=== PATIENT | male | born 1935 | race African-American/Black ===

== ENCOUNTER 2017-11-17 06:01 | Day surgery (SDC) | payer MEDICARE, OTHER ==
--- NOTE | 2017-11-13 16:42 | Pre-Procedure Note/Attestation ---
Pre-Procedure Note/Attestation Complete Prior to Procedure Planned Procedure: left Procedure Narrative: 1. CATARACT EXTRACTION WITH PHACO AND PC IOL IMPLANTATION, LEFT EYE. 2. LIMBAL RELAXING INCISION, LEFT EYE. 3.MALYUGIN RING INSERTION, LEFT EYE FOR FLOPPY IRIS SYNDROME. 4.COMPLEX CATARACT , LEFT EYE Indications for Procedure Pre-Operative Diagnosis: 1. CATARACT (AGE RELATED NUCLEAR) ,LEFT EYE. 2.ASTIGMATISM , LEFT EYE. 3. FLOPPY IRIS SYNDROME,LEFT EYE 4. COMPLEX CATARACT , LEFT EYE. Attestation I attest that I discussed the nature of the procedure; its benefits; risks and complications; and alternatives (and the risks and benefits of such alternatives ), prior to the procedure, with the patient (or the patient's legal international representative). I attest that, if there was a reasonable possibility of needing a blood transfusion, the patient (or the patient's legal international representative) was given the [facility] standardized written summary, pursuant to the [place] Blood Safety Act ([place] Health and Safety Code # 1645, as amended). I attest that I re-evaluated the patient just prior to the surgery and that there has been no change in the patient's H&P, except as documented below: ABE MARI Nov 13, 2017 16:41
[2017-11-17] VITALS (9 sets, daily range): BP systolic 111–148; BP diastolic 69–98
[~2017-11-17] VITALS: Ht 180.3 cm; Wt 115.7 kg
[~2017-11-17 06:01] MED LIST: AMLODIPINE BES2.5 MG ORAL; ASPIR 8181 MG PO; ATORVASTATIN CA80 MG ORAL; Akten 3.5% 1ml Btl ONE; BACTRIM DS TAB1 EAC1 ORAL; CIPRO500 MG/51 PO; COLACE; COLACE100 MG ORAL; COZAAR50 MG PO; CRESTOR20 MG ORAL; GABAPENTIN300 MG PO; GLIPIZIDE10 MG PO; INSULIN; JANUMET 50-1,01 EACH PO; KEFLEX500 MG ORAL; Ketorolac Tromethamine Opth 5ml Soln ONE; LEVEMIR FL100 UNIT/1 SUBQ; NORCO 5-325 TA1 EACH ORAL; Phenylephrine 10% Opth Soln 5ml ONE; STARLIX120 MG ORAL; STARLIX60 MG ORAL; Tropicamide 1% Opth 15ml Soln ONE; Vigamox Opth Soln 3ml ONE; acetaZOLAMIDE 125mg tab ORAL ONE
[2017-11-17] MEDS: Ketorolac Tromethamine Opth 5ml Soln LEFT EYE SCH ×3 (06:42→07:01)
[2017-11-17] MEDS: Akten 3.5% 1ml Btl LEFT EYE SCH ×3 (06:42→07:01)
[2017-11-17] MEDS: Phenylephrine 10% Opth Soln 5ml LEFT EYE SCH ×3 (06:43→07:01)
[2017-11-17] MEDS: Vigamox Opth Soln 3ml LEFT EYE SCH ×3 (06:43→07:01)
[2017-11-17] MEDS: Tropicamide 1% Opth 15ml Soln LEFT EYE SCH ×3 (06:43→07:01)
[2017-11-17] MEDS ORDERED: Lidocaine 1% MPF 10mg/ml 5ml ONE ×2 (07:02→07:30)
[2017-11-17] MEDS ORDERED: BSS 500ml btl ONE (07:02)
[2017-11-17] MEDS ORDERED: Dexamethasone 4mg/ml vial ONE (07:02)
[2017-11-17] MEDS ORDERED: Tetracaine 0.5% Opth 4ml Soln ONE (07:02)
[2017-11-17] MEDS ORDERED: BSS 15ml BTL ONE (07:03)
[2017-11-17] MEDS ORDERED: EPINEPHrine 1mg/1ml Amp ONE (07:03)
[2017-11-17] MEDS ORDERED: Carbachol 0.01% Op Soln 1.5ml vial ONE (07:03)
[2017-11-17] MEDS ORDERED: Sodium Hyaluronate 10 mg/ml 0.85ml ONE (07:04)
[2017-11-17] MEDS ORDERED: Povidone-Iodine 5% opth solution ONE (07:04)
[2017-11-17] MEDS ORDERED: TOUJEO SOL300 UNIT/1 SQ (07:07)
[2017-11-17] MEDS ORDERED: DiphenhydrAMINE 50mg/ml Inj ONE (07:18)
[2017-11-17] MEDS ORDERED: TAMSULOSIN HCL0.4 MG ORAL (07:19)
[2017-11-17] MEDS ORDERED: LR 1000ml 1,000 ML IVLG SCH (07:23)
--- NOTE | 2017-11-17 07:23 | Anethesia Preoperative Eval ---
Anesthesia Pre-op PMH/ROS General Date of Evaluation: Nov 17, 2017 Anesthesiologist: Leo ASA Score: ASA 3 Mallampati Score Class I : Soft palate, uvula, fauces, pillars visible Class II: Soft palate, uvula, fauces visible Class III: Soft palate, base of uvula visible Class IV: Only hard plate visible Mallampati Classification: Class III Surgeon: Ezra Diagnosis: Left ctaract Surgical Procedure: Left ctaract extraction with IOL Anesthesia History: none Family History: no anesthesia problems Allergies: Coded Allergies: No Known Allergies (Unverified , 01/04/13) Medications: see eMAR Past Medical History Cardiovascular: Reports: HTN, CAD, other - HLD, Denies: [place], valve dz, arrhythmia Pulmonary: Reports: asthma, Denies: COPD, CRUZ, other Gastrointestinal/Genitourinary: Reports: GERD, other - pancreatitis, Denies: CRI, ESRD Neurologic/Psychiatric: Reports: 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 Exam Physician Exam Last Vital Signs Date Time Temp Pulse Resp B/P (MAP) Pulse Ox O2 Delivery O2 Flow Rate FiO2 11/17/17 06:50 97.3 77 20 111/73 96 Room Air Constitutional: NAD Cardiovascular: RRR Respiratory: CTA Airway Exam Mallampati Score: Class III MO: limited ROM: limited Teeth: missing Dentures: upper, lower Anesthesia Pre-op A/P Labs see chart Studies Pre-op Studies: EKG Risk Assessment & Plan Assessment: ASA III Plan: MAC Pre-Antibiotics Drug: N/A CHAN BARBOUR M.D. Nov 17, 2017 07:23
--- NOTE | 2017-11-17 07:24 | Immediate Post-Op Evaluation ---
Immediate Post-Op Evalulation Immediate Post-Op Evalulation Procedure: Left cataract extraction with IOL Date of Evaluation: Nov 17, 2017 Time of Evaluation: 08:28 IV Fluids: 300 Blood Products: 0 Estimated Blood Loss: 0 Urinary Output: 0 Blood Pressure Systolic: 146 Blood Pressure Diastolic: 98 Pulse Rate: 77 Respiratory Rate: 16 O2 Sat by Pulse Oximetry: 99 Temperature (Fahrenheit): 97.1 Pain Score (1-10): 0 Nausea: No Vomiting: No Complications 0 Patient Status: awake, reacts, patent, none Hydration Status: adequate Drug: N/A CHAN BARBOUR M.D. Nov 17, 2017 07:24
[2017-11-17] MEDS ORDERED: NS Irrig 1000ml ONE (07:30)
[2017-11-17] MEDS ORDERED: LR 1000ml ONE (07:30)
[2017-11-17] MEDS ORDERED: DiphenhydrAMINE 50mg/ml Inj IVP PRN (07:30)
[2017-11-17] MEDS ORDERED: Sterile Water Irrig 1000ml IRRIG ONE (07:30)
--- NOTE | 2017-11-17 07:53 | 48 Hour Post Anesthesia Eval ---
Post Anesthesia Evaluation Procedure: Left cataract extraction with IOL Date of Evaluation: Nov 17, 2017 Airway: patent Nausea: No Vomiting: No Pain Intensity: 0 Hydration Status: adequate Cardiopulmonary Status: at baseline Mental Status/LOC: patient returned to baseline Post-Anesthesia Complications: 0 Follow-up care needed: ready to discharge CHAN BARBOUR M.D. Nov 17, 2017 07:53
--- NOTE | 2017-11-17 08:27 | Discharge Summary ---
Discharge Summary Discharge Summary Discharge Summary DATE OF ADMISSION: DATE OF DISCHARGE: 11/17/2017 REASON FOR HOSPITALIZATION: cataract extraction, left eye SURGERY PERFORMED: 1- Cataract extraction with phaco and PC IOl implantation, left eye CONDITION IN THE HOSPITAL:The patient tolerated the surgery without complications. DISCHARGE CONDITION: The patient was stable at discharge. DISCHARGE MEDICATIONS: 1. Vigamox eye drops one drop q.i.d, OS 2. Prednisolone one drop q.i.d, OS 3. prolensa one drop qd, left eye POSTOPERATIVE ORDERS: The patient has to rest at home. No bending, No lifting, No watching Television tonight. POSTOPERATIVE FOLLOW UP: The patient will be followed in my office tomorrow morning at 7 o'clock. ABE MARI Nov 17, 2017 08:27
--- NOTE | 2017-11-17 08:30 | Brief Operative Note ---
Immediate Post Operative Note Operative Note Chief Complaint: Blurry vision, difficulty drivind and reading, left eye Pre-op Diagnosis: 1. CATARACT (AGE RELATED NUCLEAR) ,LEFT EYE. 2.ASTIGMATISM , LEFT EYE. 3. FLOPPY IRIS SYNDROME,LEFT EYE 4. COMPLEX CATARACT , LEFT EYE. Procedure: 1- Cataract extraction with phaco and PC IOl implantation, left eye 2- Insertion Malyugin ring for treatment floppy iris syndrome, left eye 3- LRI, left eye Post-op Diagnosis: same as pre-op Surgeon: Abe Munguia MD. Wire Bender: None Additional Surgeons: None Anesthesiologist: Dr. Bailey Anesthesia: MAC Specimen: none Complications: none Condition: stable Fluids: 500ml Estimated Blood Loss: none Drains: none Implant(s) used?: Yes - Monofocal PC IOl implanted in the left eye without complication ABE MUNGUIA Nov 17, 2017 08:30
--- NOTE | 2017-11-18 00:30 | Operative Note - Dictated ---
DATE OF OPERATION: 11/17/2017 FACILITY: [facility]. SURGEON: Kee Munguia M.D. HEAD OF SALES PROMOTION: None. ANESTHESIOLOGIST: Dr. Bailey. ANESTHESIA: Monitored anesthesia care (MAC). PREOPERATIVE DIAGNOSES: 1. Cataract, left eye. 2. Astigmatism, left eye. 3. Floppy iris syndrome, left eye. 4. Complex cataract, left eye. POSTOPERATIVE DIAGNOSES: 1. Cataract, left eye. 2. Astigmatism, left eye. 3. Floppy iris syndrome, left eye. 4. Complex cataract, left eye. SURGERY PERFORMED: 1. Cataract extraction with phacoemulsification and posterior chamber intraocular lens implantation in the left eye. 2. Limbal relaxing incision (LRI) in the left eye. 3. Insertion of Malyugin ring in the left eye for treatment of floppy iris syndrome. 4. Removal of complex cataract in the left eye. INDICATION FOR SURGERY: The patient is an 82-year-old gentleman with a history of diabetes mellitus, hypertension, hypercholesterolemia, BPH, and history of a stroke. He had some and back pain. He is taking medications including Diovan, simvastatin, Flomax, pain medication, and GOMEZ inhibitors. He is complaining of blurry vision of the left eye. The cornea is clear. Anterior chamber is clean and quiet, but is very shallow. Pupillary reflex is normal. There is no RAPD. There is 4+ nuclear sclerosis and 2+ cortical cataract. Funduscopy shows . There is some mild degree of macular degeneration. Periphery retina is flat. To improve his vision in the left eye, the cataract has to be removed and posterior chamber intraocular lens has to be implanted. INFORMED CONSENT: The nature of the surgery, risks, benefits, alternatives, and potential complications were all explained in detail to the patient. The potential complications including, but not limited to bleeding, infection, posterior capsular rupture, lens subluxation, flat anterior chamber, iris prolapse, uveitis, wound leakage, corneal edema, macular edema, endophthalmitis, retinal detachment, loss of vision, and even loss of the eye were all explained in detail to the patient. The patient voiced understanding and accepted all the complications. The alternatives including accommodating lens, multifocal lens, toric lens, and conventional cataract surgery with limbal relaxing incision (LRI) for treatment of astigmatism all were explained in detail to the patient. The patient voiced understanding. The patient elected to have only conventional cataract surgery with limbal relaxing incision for treatment of astigmatism in the left eye. Then, he signed the consent form, which is in the chart. DESCRIPTION OF SURGERY AND FINDINGS: Following that the patient was taken to the operation room in stable condition. Lidocaine gel, Akten 3.5% were applied to the conjunctiva of the left eye. IV sedation was given by the anesthesiologist, Dr. Bailey. After adequate anesthesia and sedation had been achieved, the left eye was prepped and draped in the sterile fashion for intraocular surgery. Following that, a speculum was placed in the left eye. Before the patient was taken to the operation room, the cornea was marked at 180 and 90 meridian. In the operation room, using a corneal marker and marking pen, the steep meridian of the cornea was marked. Following that, using a shukri knife with 600 blade, two parallel incisions were placed on the steep meridian of the cornea to treat the astigmatism. Following that, using a Super Sharp knife, a clear corneal side port was created. A 1% lidocaine without preservative (MPF) was injected into the anterior chamber. Viscoelastic agent, Healon was injected into the anterior chamber. Following that, using a 2.8 mm keratome, clear corneal temporal keratotomy was performed. Viscoelastic agent, Healon was injected into the anterior chamber again. Following that, a Malyugin ring was inserted into the anterior chamber. Following that, the coils of the Malyugin ring was engaged with sphincter of the pupil and a shukri shaped space was created for safe phacoemulsification. Following that, VisionBlue was injected under viscoelastic agent to stain the capsule of the crystalline lens. Following that, a clear fresh viscoelastic agent, Healon was injected into the anterior chamber again. Under the viscoelastic agent, anterior capsulotomy was performed in the fashion of capsulorrhexis beautifully. Following that, all viscoelastic agent was removed from the anterior chamber. Following that, using balanced salt solution, hydrodissection and hydrodelineation was performed and the nucleus was freed. Following that, a clear viscoelastic agent was injected into the anterior chamber to protect the endothelium of the cornea. Following that, using the phacoemulsification machine in the fashion of horizontal chop, the nucleus was removed in toto. Following that, using irrigation aspiration unit, the cortical material was removed from the capsular bag and the capsular bag was polished. Following that, the capsular bag was filled with viscoelastic agent, Healon. Following that, a +19 diopter PCB00 foldable PCIOL was injected into the capsular bag with serial number [id number]. Following that, using a Sinskey hook, the lens was manipulated and put in the proper position. Following that, the viscoelastic agent was removed from the anterior and posterior part of the lens. Following that, the anterior chamber was filled with balanced salt solution and the wound was hydrated with balanced salt solution. The wound was checked for leakage and there was no leakage. Vigamox eye drops were applied to the conjunctiva of the left eye. The patient tolerated the surgery without complications. At the end of the surgery, the eye was patched with a clear sterile fenestrated shield. Following that, the patient was transferred to the recovery room. In the recovery room, 125 mg of Diamox was given by mouth stat. Postoperative orders and directions were given to the patient. The patient will be discharged home upon stabilization. The patient will be followed in my office tomorrow morning at 9 o'clock. Kee Munguia M.D. DR: JESSIE JOB#: [id number] CC:
== END 2017-11-17 09:40 | disposition home or self-care (01) ==
LOC: SUR 06:01
DX: H25.12 Age-related nuclear cataract, left eye (principal); H25.012 Cortical age-related cataract, left eye; H52.202 Unspecified astigmatism, left eye; H21.81 Floppy iris syndrome; E11.9 Type 2 diabetes mellitus without complications; I10 Essential (primary) hypertension; E78.00 Pure hypercholesterolemia, unspecified; Z86.73 Personal history of transient ischemic attack (TIA), and cerebral infarction without residual deficits; H35.30 Unspecified macular degeneration; I11.9 Hypertensive heart disease without heart failure; F32.9 Major depressive disorder, single episode, unspecified; F41.9 Anxiety disorder, unspecified; K21.9 Gastro-esophageal reflux disease without esophagitis
CPT/HCPCS: 65772; 66982; 82962; J0171; J1100; J1200; J7120; V2632; 94003; 94150

== ENCOUNTER 2017-11-24 05:56 | Day surgery (SDC) | payer MEDICARE, OTHER ==
--- NOTE | 2017-11-20 10:50 | Pre-Procedure Note/Attestation ---
Pre-Procedure Note/Attestation Complete Prior to Procedure Planned Procedure: right Procedure Narrative: 1. CATARACT EXTRACTION WITH PHACO AND PC IOL IMPLANTATION, RIGHT EYE. 2. LIMBAL RELAXING INCISION, RIGHT EYE. 3.MALYUGIN RING INSERTION, RIGHT EYE FOR FLOPPY IRIS SYNDROME. 4.COMPLEX CATARACT , RIGHT EYE Indications for Procedure Pre-Operative Diagnosis: 1. CATARACT (AGE RELATED NUCLEAR) ,RIGHT EYE. 2.ASTIGMATISM , RIGHT EYE. 3. FLOPPY IRIS SYNDROME,RIGHT EYE 4. COMPLEX CATARACT , RIGHT EYE. Attestation I attest that I discussed the nature of the procedure; its benefits; risks and complications; and alternatives (and the risks and benefits of such alternatives ), prior to the procedure, with the patient (or the patient's legal liability claims representative). I attest that, if there was a reasonable possibility of needing a blood transfusion, the patient (or the patient's legal liability claims representative) was given the [facility] standardized written summary, pursuant to the [place] Blood Safety Act ([place] Health and Safety Code # 1645, as amended). I attest that I re-evaluated the patient just prior to the surgery and that there has been no change in the patient's H&P, except as documented below: ABE MARI Nov 20, 2017 10:50
[~2017-11-24] VITALS: Ht 180.3 cm; Wt 115.7 kg
[2017-11-24] VITALS (10 sets, daily range): BP systolic 118–149; BP diastolic 73–89
[~2017-11-24 05:56] MED LIST changes: +TAMSULOSIN HCL0.4 MG ORAL; +TOUJEO SOL300 UNIT/1 SQ; -acetaZOLAMIDE 125mg tab ORAL ONE
[2017-11-24] MEDS ORDERED: acetaZOLAMIDE 125mg tab ORAL ONE (06:00)
[2017-11-24] MEDS: Phenylephrine 10% Opth Soln 5ml RIGHT EYE SCH ×3 (06:34→07:03)
[2017-11-24] MEDS: Tropicamide 1% Opth 15ml Soln RIGHT EYE SCH ×3 (06:34→07:03)
[2017-11-24] MEDS: Akten 3.5% 1ml Btl RIGHT EYE SCH ×3 (06:34→07:03)
[2017-11-24] MEDS: Ketorolac Tromethamine Opth 5ml Soln RIGHT EYE SCH ×3 (06:34→07:03)
[2017-11-24] MEDS: Vigamox Opth Soln 3ml RIGHT EYE SCH ×3 (06:34→07:03)
[2017-11-24] MEDS ORDERED: Dexamethasone 4mg/ml vial ONE (06:59)
[2017-11-24] MEDS ORDERED: Tetracaine 0.5% Opth 4ml Soln ONE (06:59)
[2017-11-24] MEDS ORDERED: Lidocaine 1% MPF 10mg/ml 5ml ONE (06:59)
[2017-11-24] MEDS ORDERED: BSS 500ml btl ONE (06:59)
[2017-11-24] MEDS ORDERED: BSS 15ml BTL ONE (07:00)
[2017-11-24] MEDS ORDERED: Sterile Water Irrig 1000ml IRRIG ONE (07:00)
[2017-11-24] MEDS ORDERED: Carbachol 0.01% Op Soln 1.5ml vial ONE (07:00)
[2017-11-24] MEDS ORDERED: NS Irrig 1000ml ONE (07:00)
[2017-11-24] MEDS ORDERED: fentaNYL 100 mcg/2 mL IV ONE (07:00)
[2017-11-24] MEDS ORDERED: Midazolam 2mg/2ml Inj ONE (07:00)
[2017-11-24] MEDS ORDERED: EPINEPHrine 1mg/1ml Amp ONE (07:00)
[2017-11-24] MEDS ORDERED: Sodium Hyaluronate 10 mg/ml 0.85ml ONE (07:00)
[2017-11-24] MEDS ORDERED: Povidone-Iodine 5% opth solution ONE (07:01)
--- NOTE | 2017-11-24 07:51 | Anethesia Preoperative Eval ---
Anesthesia Pre-op PMH/ROS General Date of Evaluation: Nov 24, 2017 Time of Evaluation: 07:08 Anesthesiologist: Dylan ASA Score: ASA 3 Mallampati Score Class I : Soft palate, uvula, fauces, pillars visible Class II: Soft palate, uvula, fauces visible Class III: Soft palate, base of uvula visible Class IV: Only hard plate visible Mallampati Classification: Class III Surgeon: Ezra Diagnosis: R eye cataract Surgical Procedure: R eye cataract extraction Anesthesia History: none Family History: no anesthesia problems Allergies: Coded Allergies: No Known Allergies (Unverified , 01/04/13) Past Medical History Cardiovascular: Reports: HTN, Denies: CAD, CT, valve dz, arrhythmia, other Pulmonary: Reports: CRUZ, Denies: asthma, COPD, other Gastrointestinal/Genitourinary: Reports: GERD, CRI, Denies: ESRD, other Neurologic/Psychiatric: Reports: dementia - mild, CVA - L hemiparesis, Denies: depression/anxiety, TIA, other Endocrine: Reports: DM - on insulin poorly controled, Denies: hypothyroidism, steroids, other HEENT: Reports: cataract (L), cataract (R), Denies: glaucoma, [place] (L), [place] (R), other Hematology/Immune: Reports: anemia - mild, Denies: DVT, bleeding disorder, other Musculoskeletal/Integumentary: Reports: DJD, Denies: OA, RA, DDD, edema, other Other: obesity PMH Narrative: as above PSxH Narrative: L eye cataract, excision of acoustic neuroma Anesthesia Pre-op Phys. Exam Physician Exam Last Vital Signs Date Time Temp Pulse Resp B/P (MAP) Pulse Ox O2 Delivery O2 Flow Rate FiO2 11/24/17 06:37 97.4 77 18 118/73 98 Room Air 97.4 Constitutional: NAD Neurologic: other - unable to obtaine Cardiovascular: RRR Respiratory: CTA Gastrointestinal: other - obesity Airway Exam Mallampati Score: Class III MO: limited Neck: short stiff ROM: limited Teeth: missing Dentures: no upper, no lower Anesthesia Pre-op A/P Labs see chart Accucheck 56 and 59 at admission, NPO since 10 PM and 75 units of insulin was given around 8 PM, D5/ 0,5NS i/v running. Studies Pre-op Studies: EKG - SR Risk Assessment & Plan Assessment: ASA 3 Plan: Minimal sedation with MAC Status Change Before Surgery: No Pre-Antibiotics Drug: none VELMA BUSTOS M.D. Nov 24, 2017 07:51
[2017-11-24] MEDS ORDERED: DiphenhydrAMINE 50mg/ml Inj IVP PRN (08:00)
[2017-11-24] MEDS ORDERED: fentaNYL 100 mcg/2 mL IV PRN (08:00)
--- NOTE | 2017-11-24 08:17 | Discharge Summary ---
Discharge Summary Discharge Summary Discharge Summary DATE OF ADMISSION: 11/24/2017 DATE OF DISCHARGE: 11/24/2017 REASON FOR HOSPITALIZATION: cataract right eye SURGERY PERFORMED: cataract extraction, right eye 2- LRI 3- Complex cataract, right eye CONDITION IN THE HOSPITAL:The patient tolerated the surgery without complications. DISCHARGE CONDITION: The patient was stable at discharge. DISCHARGE MEDICATIONS: 1. Vigamox eye drops one drop q.i.d, OD 2. Prednisolone one drop q.i.d, OD 3. Prolenza once a day, right eye POSTOPERATIVE ORDERS: The patient has to rest at home. No bending, No lifting, No watching Television tonight. POSTOPERATIVE FOLLOW UP: The patient will be followed in my office tomorrow morning at 7 o'clock. ABE MARI Nov 24, 2017 08:17
--- NOTE | 2017-11-24 08:20 | Brief Operative Note ---
Immediate Post Operative Note Operative Note Chief Complaint: Blurry vision, difficulty driving and reading, right eye Pre-op Diagnosis: 1. CATARACT (AGE RELATED NUCLEAR) ,RIGHT EYE. 2.ASTIGMATISM , RIGHT EYE. 3. FLOPPY IRIS SYNDROME,RIGHT EYE 4. COMPLEX CATARACT , RIGHT EYE. Procedure: 1- Cataract extraction with phaco and PC IOL implantation, right eye 2- Malyugin ring insertion for floppy iris syndrome 3- Complex cataract extraction right eye Post-op Diagnosis: same as pre-op Surgeon: Abe Munguia MD. [employer] Sales Consultant: None Additional Surgeons: NOne Anesthesiologist: Dr. Richardson Anesthesia: MAC Specimen: none Complications: none Condition: stable Fluids: 500ml Estimated Blood Loss: none Drains: none Implant(s) used?: Yes - Monofocal PC IOl implanted in the right eye without complication ABE MUNGUIA Nov 24, 2017 08:20
--- NOTE | 2017-11-24 09:00 | Immediate Post-Op Evaluation ---
Immediate Post-Op Evalulation Immediate Post-Op Evalulation Procedure: R eye cataract extraction with IOL Date of Evaluation: Nov 24, 2017 Time of Evaluation: 08:18 IV Fluids: 300 Blood Products: none Estimated Blood Loss: none Urinary Output: none Blood Pressure Systolic: 128 Blood Pressure Diastolic: 76 Pulse Rate: 72 Respiratory Rate: 22 O2 Sat by Pulse Oximetry: 98 Temperature (Fahrenheit): 97.5 Pain Score (1-10): 2 Nausea: No Vomiting: No Complications none, BS at PACU admission 103. Patient Status: awake, patent, none Hydration Status: adequate VELMA BUSTOS M.D. Nov 24, 2017 09:00
--- NOTE | 2017-11-24 09:58 | 48 Hour Post Anesthesia Eval ---
Post Anesthesia Evaluation Procedure: R eye cataract extraction with IOL Date of Evaluation: Nov 24, 2017 Time of Evaluation: 09:57 Blood Pressure Systolic: 148 0: 75 Pulse Rate: 76 Respiratory Rate: 20 Temperature (Fahrenheit): 97.6 O2 Sat by Pulse Oximetry: 97 Airway: patent Nausea: No Vomiting: No Pain Intensity: 1 Hydration Status: adequate Cardiopulmonary Status: stable Mental Status/LOC: patient returned to baseline Follow-up Care/Observations: n/a Post-Anesthesia Complications: none Follow-up care needed: ready to discharge VELMA BUSTOS M.D. Nov 24, 2017 09:58
--- NOTE | 2017-11-25 | Operative Note - Dictated ---
DATE OF OPERATION: 11/24/2017 FACILITY: [facility]. SURGEON: Kee Munguia M.D. JOCKEY ROOM CUSTODIAN: None. ANESTHESIOLOGIST: Hernando Richardson M.D. ANESTHESIA: Monitored anesthesia care (MAC). PREOPERATIVE DIAGNOSES: 1. Cataract, right eye. 2. Astigmatism, right eye. 3. Floppy iris syndrome, right eye. 4. Complex cataract, right eye. POSTOPERATIVE DIAGNOSES: 1. Cataract, right eye. 2. Astigmatism, right eye. 3. Floppy iris syndrome, right eye. 4. Complex cataract, right eye. SURGERY PERFORMED: 1. Cataract extraction with phacoemulsification and posterior chamber intraocular lens implantation in the right eye. 2. Limbal relaxing incision (LRI) in the right eye. 3. Insertion of Malyugin ring in the right eye for treatment of floppy iris syndrome. 4. Removal of complex cataract in the right eye. INDICATION FOR SURGERY: The patient is an 82-year-old gentleman with history of diabetes mellitus, hypertension, hypercholesterolemia, benign prostatic hypertrophy, and history of left-sided stroke. He is complaining of some back pain as well and he had low back surgery. He is taking medications including Diovan, simvastatin, Flomax, pain medications, and GOMEZ inhibitors. He is complaining of blurry vision in the right eye. He has had cataract surgery in the left eye last week and he is happy with the result. Now, he is complaining of blurry vision in the right eye. On examination of the right eye, the cornea is clear. Anterior chamber is clean and quiet, but very shallow. Pupillary reflex is normal. There is normal pupillary reflex and there is no RAPD. There is 4+ nuclear sclerosis and 2+ cortical cataract. Funduscopy shows normal optic disk, questionable macular degeneration, and periphery retina within normal limits. The patient has some mild degree of macular degeneration. Periphery retina is flat. To improve his vision in the right eye, the cataract has to be removed and posterior chamber intraocular lens has to be implanted. INFORMED CONSENT: The nature of the surgery, risks, benefits, alternatives, and potential complications were all explained in detail to the patient. The potential complications including, but not limited to bleeding, infection, posterior capsular rupture, lens subluxation, flat anterior chamber, iris prolapse, uveitis, wound leakage, corneal edema, macular edema, endophthalmitis, retinal detachment, loss of vision, and even loss of the eye were all explained in detail to the patient. The patient voiced understanding and accepted all the complications. The alternatives including accommodating lens, multifocal lens, toric lens, and conventional cataract surgery with limbal relaxing incision (LRI) for treatment of astigmatism all were explained in detail to the patient. The patient voiced understanding. The patient elected to have only conventional cataract surgery with limbal relaxing incision for treatment of astigmatism in the right eye. Then, he signed the consent form, which is in the chart. DESCRIPTION OF SURGERY AND FINDINGS: Following that, the patient was taken to the operation room in stable condition. Lidocaine gel, Akten 3.5% were applied to the conjunctiva of the right eye. IV sedation was given by the anesthesiologist, Dr. Richardson. After adequate anesthesia and sedation had been achieved, the right eye was prepped and draped in the sterile fashion for intraocular surgery. Before the patient was taken to the operation room, the cornea was marked at 180 and 90 meridian. In the operation room, using a corneal marker and marking pen, the steep meridian of the cornea was marked. Following that, using a shukri knife with 600 micron blade, two parallel incisions were created in the steep meridian of the cornea. Following that, using a Super Sharp knife, a clear corneal side port was created. Following that, 1% lidocaine without preservative (MPF) was injected into the anterior chamber. Viscoelastic agent, Healon, was injected into the anterior chamber. Following that, using a 2.8 mm keratome, clear corneal temporal keratotomy was performed. Viscoelastic agent, Healon, was injected into the anterior chamber again. Following that, a Malyugin ring was inserted into the anterior chamber. Following that, the coils of the Malyugin ring were engaged with sphincter of the pupil, and a shukri shaped space was created for safe phacoemulsification. Following that, viscoelastic agent was injected into the anterior chamber. Following that, VisionBlue was injected under the viscoelastic agent to stain the capsule of the crystalline lens. Following that, a clear fresh sterile viscoelastic agent, Healon, was injected into the anterior chamber again. Under the viscoelastic agent, an anterior capsulotomy was performed in the fashion of capsulorrhexis beautifully. Following that, all viscoelastic agent was removed from the anterior chamber. Following that, using balanced salt solution, hydrodissection and hydrodelineation was performed and the nucleus was freed. Following that, clear fresh sterile viscoelastic agent, Healon, was injected into the anterior chamber to protect the endothelium of the cornea. Following that, using the phacoemulsification machine in the fashion of horizontal chop, the nucleus was removed in toto. Following that, using the irrigation aspiration unit, the cortical material was removed from the capsular bag and the capsular bag was polished. Following that, the capsular bag was filled with viscoelastic agent, Healon. Following that, a +18.0 diopter ZCB00 foldable PCIOL was injected into the anterior chamber with serial number [id number]. Using a Sinskey hook, the lens was manipulated and put in the proper position. Following that, the viscoelastic agent was removed from the anterior and posterior part of the lens. Following that, the anterior chamber was filled with balanced salt solution. Following that, the wound was hydrated with balanced salt solution. Following that, the wound was checked for leakage and there was no leakage. Vigamox eye drops were applied to the conjunctiva of the right eye. The patient tolerated the surgery without complications. At the end of the surgery, the eye was patched with a clear sterile fenestrated shield. Following that, the patient was transferred to the recovery room. In the recovery room, 125 mg of Diamox was given by mouth stat. Postoperative orders and directions were given to the patient. The patient will be discharged home upon stabilization. The patient will be followed in my office tomorrow morning at 9 o'clock. Kee Munguia M.D. DR: CHANO JOB#: [id number] CC:
== END 2017-11-24 10:00 | disposition home or self-care (01) ==
LOC: SUR 05:56
DX: H25.11 Age-related nuclear cataract, right eye (principal); H25.011 Cortical age-related cataract, right eye; H52.201 Unspecified astigmatism, right eye; H21.81 Floppy iris syndrome; E78.00 Pure hypercholesterolemia, unspecified; G81.94 Hemiplegia, unspecified affecting left nondominant side; I12.9 Hypertensive chronic kidney disease with stage 1 through stage 4 chronic kidney disease, or unspecified chronic kidney disease; E11.22 Type 2 diabetes mellitus with diabetic chronic kidney disease; N18.9 Chronic kidney disease, unspecified; Z79.82 Long term (current) use of aspirin; Z79.4 Long term (current) use of insulin; K21.9 Gastro-esophageal reflux disease without esophagitis; M19.90 Unspecified osteoarthritis, unspecified site; F03.90 Unspecified dementia, unspecified severity, without behavioral disturbance, psychotic disturbance, mood disturbance, and anxiety; G47.33 Obstructive sleep apnea (adult) (pediatric); E66.9 Obesity, unspecified; Z68.35 Body mass index [BMI] 35.0-35.9, adult
CPT/HCPCS: 65772; 66982; 82962; J0171; J1100; J2250; J3010; V2632; 94003; 94150

== ENCOUNTER 2019-05-05 16:55 | Inpatient (IN) | payer MEDICARE, OTHER ==
[~2019-05-05] VITALS: Ht 180.3 cm; Wt 117.9 kg
[~2019-05-05 16:55] MED LIST changes: -Akten 3.5% 1ml Btl ONE; -Ketorolac Tromethamine Opth 5ml Soln ONE; -Phenylephrine 10% Opth Soln 5ml ONE; -Tropicamide 1% Opth 15ml Soln ONE; -Vigamox Opth Soln 3ml ONE
[2019-05-05 17:10] VITALS: BP 132/83
--- NOTE | 2019-05-05 17:10 | NUR ---
ED Nurse Note: Pt from home came in due ot swelling of bilateral legs x 3 weeks. Denies SOB or hx of heart condition. AA x4, ambulates around using a cane. No respiratory distress. Noted bilateral pitting edema +3 on BLE.
--- NOTE | 2019-05-05 17:34 | Emergency Room Report ---
History of Present Illness General Chief Complaint: Edema Source: Patient Present Illness HPI Patient presents with complaints of increased swelling Denies taking any water pills denies any chest pain there is some exertional dyspnea over the past several days Denies any vomiting or diarrhea denies any fevers denies any recent travel he reports that the swelling is equal in both legs Also has noticed increased swelling in the lower abdomen Denies any cough denies any neck pain or photophobia Allergies: Coded Allergies: No Known Allergies (Unverified , 01/04/13) Patient History Past Medical History: see triage record Pertinent Family History: none Reviewed Nursing Documentation: PMH: Agreed; PSxH: Agreed Nursing Documentation-PMH Past Medical History: No History, Except For Hx Cardiac Problems: Yes Hx Hypertension: Yes Hx Diabetes: Yes Hx Cancer: No Hx Gastrointestinal Problems: No Hx Neurological Problems: Yes Hx Cerebrovascular Accident: Yes - 1998-left sided weakness Hx Vertigo: Yes Hx Dizziness: Yes Hx Syncope: Yes Hx Weakness: Yes Hx Fatigue: Yes Review of Systems All Other Systems: negative except mentioned in HPI Physical Exam Vital Signs Date Time Temp Pulse Resp B/P (MAP) Pulse Ox O2 Delivery O2 Flow Rate FiO2 05/05/19 17:00 98.1 93 20 113/71 (85) 98 Room Air Sp02 EP Interpretation: reviewed, normal General Appearance: no apparent distress Head: normocephalic, atraumatic Eyes: bilateral eye PERRL, bilateral eye EOMI ENT: normal pharynx Neck: supple Respiratory: crackles - Bilaterally Cardiovascular #1: regular rate, rhythm, other - Edema bilaterally pitting 2 out of 4 Gastrointestinal: non tender, soft Genitourinary: no CVA tenderness Musculoskeletal: other - Ambulates with a walker previous CVA Neurologic: alert, oriented x3 Skin: other - Edema as noted above Lymphatic: no adenopathy Medical Decision Making Diagnostic Impression: Primary Impression: Edema Additional Impression: CHF (congestive heart failure) ER Course Patient is a fairly complex patient with multiple differential to consideration including but not limited to cardiac cardiopulmonary and vascular emergencies Patient's ultrasounds are negative for DVT blood work is at baseline levels patient clinically shows evidence of dependent edema Further diuretics are provided patient requires further inpatient care Labs Test 05/05/19 17:30 White Blood Count 6.1 K/UL (4.8-10.8) Red Blood Count 4.54 M/UL (4.70-6.10) Hemoglobin 12.5 G/DL (14.2-18.0) Hematocrit 38.3 % (42.0-52.0) Mean Corpuscular Volume 84 FL (80-99) Mean Corpuscular Hemoglobin 27.5 PG (27.0-31.0) Mean Corpuscular Hemoglobin Concent 32.6 G/DL (32.0-36.0) Red Cell Distribution Width 13.7 % (11.6-14.8) Platelet Count 240 K/UL (150-450) Mean Platelet Volume 6.7 FL (6.5-10.1) Neutrophils (%) (Auto) 56.1 % (45.0-75.0) Lymphocytes (%) (Auto) 28.1 % (20.0-45.0) Monocytes (%) (Auto) 9.0 % (1.0-10.0) Eosinophils (%) (Auto) 5.1 % (0.0-3.0) Basophils (%) (Auto) 1.7 % (0.0-2.0) Sodium Level 136 MMOL/L (136-145) Potassium Level 4.9 MMOL/L (3.5-5.1) Chloride Level 105 MMOL/L (98-107) Carbon Dioxide Level 23 MMOL/L (21-32) Anion Gap 8 mmol/L (5-15) Blood Urea Nitrogen 26 mg/dL (7-18) Creatinine 2.5 MG/DL (0.55-1.30) Estimat Glomerular Filtration Rate mL/min (>60) Glucose Level 245 MG/DL (74-106) Calcium Level 9.1 MG/DL (8.5-10.1) Total Bilirubin 0.5 MG/DL (0.2-1.0) Aspartate Amino Transf (AST/SGOT) 19 U/L (15-37) Alanine Aminotransferase (ALT/SGPT) 13 U/L (12-78) Alkaline Phosphatase 82 U/L (46-116) Total Creatine Kinase 212 U/L (26-308) Creatine Kinase MB 1.8 NG/ML (0.0-3.6) Creatine Kinase MB Relative Index 0.8 Troponin I 0.000 ng/mL (0.000-0.056) Pro-B-Type Natriuretic Peptide 95 pg/mL (0-125) Total Protein 8.1 G/DL (6.4-8.2) Albumin 3.7 G/DL (3.4-5.0) Globulin 4.4 g/dL Albumin/Globulin Ratio 0.8 (1.0-2.7) Lipase 79 U/L (73-393) EKG Diagnostic Results Rate: normal Rhythm: NSR ST Segments: no acute changes Rhythm Strip Diag. Results EP Interpretation: yes Rate: 66 Rhythm: NSR, no PVC's, no ectopy Chest X-Ray Diagnostic Results Chest X-Ray Diagnostic Results : Chest X-Ray Ordered: Yes # of Views/Limited/Complete: 1 View Indication: Chest Pain EP Interpretation: Yes Interpretation: no consolidation, no effusion, no pneumothorax Impression: No acute disease Electronically Signed by: Diana Solitario DO CT/MRI/US Diagnostic Results CT/MRI/US Diagnostic Results : Impression Venous ultrasound bilateral lower extremity: No acute disease Last Vital Signs Date Time Temp Pulse Resp B/P (MAP) Pulse Ox O2 Delivery O2 Flow Rate FiO2 05/05/19 17:10 98.1 83 15 132/83 98 Room Air Status: improved Disposition: ADMITTED INPATIENT Condition: Serious Diana Solitario DO May 05, 2019 17:34
--- NOTE | 2019-05-05 17:37 | NUR ---
ED Nurse Note: Collected blood specimen then sent.
[2019-05-05 17:41] LABS: BASOPHILS % (AUTO) 1.7 % (0.0-2.0); EOSINOPHILS % (AUTO) 5.1 % (0.0-3.0); HEMATOCRIT 38.3 % (42.0-52.0); HEMOGLOBIN 12.5 G/DL (14.2-18.0); LYMPHOCYTES % (AUTO) 28.1 % (20.0-45.0); MEAN CORPUSCULAR VOLUME 84 FL (80-99); NEUTROPHILS % (AUTO) 56.1 % (45.0-75.0); PLATELET COUNT 240 K/UL (150-450); RED BLOOD COUNT 4.54 M/UL (4.70-6.10); RED CELL DISTRIBUTION WIDTH 13.7 % (11.6-14.8); WHITE BLOOD COUNT 6.1 K/UL (4.8-10.8)
[2019-05-05 17:48] LABS: ANION GAP 8 mmol/L (5-15); BLOOD UREA NITROGEN 26 mg/dL (7-18); CALCIUM 9.1 MG/DL (8.5-10.1); CARBON DIOXIDE 23 MMOL/L (21-32); CHLORIDE 105 MMOL/L (98-107); CREATININE 2.5 MG/DL (0.55-1.30); POTASSIUM 4.9 MMOL/L (3.5-5.1); SODIUM 136 MMOL/L (136-145)
[2019-05-05 18:01] LABS: ALANINE AMINOTRANSFERASE 13 U/L (12-78); ALBUMIN 3.7 G/DL (3.4-5.0); ALBUMIN/GLOBULIN RATIO 0.8 (1.0-2.7); ALKALINE PHOSPHATASE 82 U/L (46-116); ASPARTATE AMINO TRANSFERASE 19 U/L (15-37); BILIRUBIN,TOTAL 0.5 MG/DL (0.2-1.0); CKMB 1.8 NG/ML (0.0-3.6); CREATINE KINASE 212 U/L (26-308)
--- NOTE | 2019-05-05 18:34 | NUR ---
ED Nurse Note: Report given to Heidy STONE of telemetry unit.
--- NOTE | 2019-05-05 18:36 | NUR ---
ED Nurse Note: Daughter took pt' aaron.
--- NOTE | 2019-05-05 18:40 | NUR ---
ED Nurse Note: US staff ana laura at the bed side.
--- NOTE | 2019-05-05 19:27 | NUR ---
NURSE NOTES: Patient arrived to floor at 1910. Transported from ER via gurney transferred to bed without difficulty. Report received from Flo Greenberg. VSS. Heart monitor placed. no c/o pain or discomfort. Safety precautions in place.Will give report to incoming Rn.
--- NOTE | 2019-05-05 19:32 | NUR ---
HAND-OFF: Report given to Bertha/Hoa Rossi. Patient stable at handoff. PLan of care endorsed.
--- NOTE | 2019-05-05 19:33 | NUR ---
NURSE NOTES: Received patient awake, lying in semi fowlers; resting comfortably; a/o x4. Denies pain at this time. No signs of acute cardiorespiratory distress. Symmetrical chest expansion, no retractions noted, clear breath sounds on both sides and unlabored. Abdomen is soft and globular, positive bowel sounds on all quadrants. Nonpitting edema noted at bilateral lower extremities. Skin assessment is performed. Skin is intact. No wounds noted. IV site intact at right hand gauge 20, patent and flushed. No erythema, bleeding, or infiltration noted. Bed at lowest position, brakes on, siderails x3. Call light within reach. Comfort care provided. Will continue to monitor.
--- NOTE | 2019-05-05 19:40 | NUR ---
NURSE NOTES: Condom catheter done draining well to gravity.
[2019-05-05] MEDS ORDERED: Zolpidem 5mg tab ORAL PRN (19:45)
[2019-05-05] MEDS ORDERED: LORazepam Inj 2mg/ml 1ml IV PRN (19:45)
[2019-05-05] MEDS ORDERED: Miralax 17gm pkt ORAL PRN (19:45)
[2019-05-05] MEDS ORDERED: Morphine Sulfate 2mg/ml Inj(IV/IM USE ONLY) IVP PRN (19:45)
[2019-05-05 20:00] VITALS: BP 130/79
[2019-05-05 20:07] LABS: CREATINE KINASE 223 U/L (26-308)
[2019-05-05] MEDS: Tamsulosin 0.4mg cap ORAL SCH (20:22)
[2019-05-05] MEDS: Heparin 5000 units/ml inj SUBQ SCH (20:26)
--- NOTE | 2019-05-05 20:38 | Cardiology Progress Note ---
Assessment/Plan Assessment/Plan doubt sig left heart failure woudl look into righ heart causes of edema consdier v/q and duplex will follow thank you [phone] Objective Last 24 Hour Vital Signs Date Time Temp Pulse Resp B/P (MAP) Pulse Ox O2 Delivery O2 Flow Rate FiO2 05/05/19 19:02 97.9 81 19 128/79 100 Room Air 05/05/19 17:10 98.1 83 15 132/83 98 Room Air 05/05/19 17:10 83 15 Room Air 05/05/19 17:00 98.1 93 20 113/71 (85) 98 Room Air Laboratory Tests Test 05/05/19 17:30 White Blood Count 6.1 K/UL (4.8-10.8) Red Blood Count 4.54 M/UL (4.70-6.10) L Hemoglobin 12.5 G/DL (14.2-18.0) L Hematocrit 38.3 % (42.0-52.0) L Mean Corpuscular Volume 84 FL (80-99) Mean Corpuscular Hemoglobin 27.5 PG (27.0-31.0) Mean Corpuscular Hemoglobin Concent 32.6 G/DL (32.0-36.0) Red Cell Distribution Width 13.7 % (11.6-14.8) Platelet Count 240 K/UL (150-450) Mean Platelet Volume 6.7 FL (6.5-10.1) Neutrophils (%) (Auto) 56.1 % (45.0-75.0) Lymphocytes (%) (Auto) 28.1 % (20.0-45.0) Monocytes (%) (Auto) 9.0 % (1.0-10.0) Eosinophils (%) (Auto) 5.1 % (0.0-3.0) H Basophils (%) (Auto) 1.7 % (0.0-2.0) Sodium Level 136 MMOL/L (136-145) Potassium Level 4.9 MMOL/L (3.5-5.1) Chloride Level 105 MMOL/L (98-107) Carbon Dioxide Level 23 MMOL/L (21-32) Anion Gap 8 mmol/L (5-15) Blood Urea Nitrogen 26 mg/dL (7-18) H Creatinine 2.5 MG/DL (0.55-1.30) H Estimat Glomerular Filtration Rate mL/min (>60) Glucose Level 245 MG/DL (74-106) H Uric Acid 7.8 MG/DL (2.6-7.2) H Calcium Level 9.1 MG/DL (8.5-10.1) Total Bilirubin 0.5 MG/DL (0.2-1.0) Aspartate Amino Transf (AST/SGOT) 19 U/L (15-37) Alanine Aminotransferase (ALT/SGPT) 13 U/L (12-78) Alkaline Phosphatase 82 U/L (46-116) Total Creatine Kinase 223 U/L (26-308) Creatine Kinase MB 1.8 NG/ML (0.0-3.6) Creatine Kinase MB Relative Index 0.8 Troponin I 0.000 ng/mL (0.000-0.056) Pro-B-Type Natriuretic Peptide 95 pg/mL (0-125) Total Protein 8.1 G/DL (6.4-8.2) Albumin 3.7 G/DL (3.4-5.0) Globulin 4.4 g/dL Albumin/Globulin Ratio 0.8 (1.0-2.7) L Lipase 79 U/L (73-393) Rasheed Dickerson MD May 05, 2019 20:38
[2019-05-05] MEDS: NovoLOG Insulin Flexpen SUBQ SCH (20:42)
[2019-05-05 23:56] LABS: APPEARANCE,URINE CLEAR; BILIRUBIN, URINE NEGATIVE (NEGATIVE); COLOR,URINE PALE YELLOW; GLUCOSE, URINE (UA) NEGATIVE (NEGATIVE); KETONES,URINE NEGATIVE (NEGATIVE); NITRITE,URINE NEGATIVE (NEGATIVE); PH,URINE 5 (4.5-8.0); PROTEIN,URINE NEGATIVE (NEGATIVE); UROBILINOGEN,URINE NORMAL MG/DL (0.0-1.0)
[2019-05-06] VITALS: BP 128/66
--- NOTE | 2019-05-06 00:15 | Consultation ---
DATE OF CONSULTATION: 05/05/2019 CARDIOLOGY CONSULTATION CONSULTING PHYSICIAN: Rasheed Dickerson M.D. REFERRING PHYSICIAN: Adithya Verduzco M.D. REASON FOR REFERRAL: Congestive heart failure, new onset. HISTORY OF PRESENT ILLNESS: This is an elderly gentleman, very delightful who presented to the hospital because of increasing leg swelling. He states it has only been going on for a couple of weeks, but his daughter indicates this has been going on for approximately three months. Usually followed by Dr. Verduzco and Dr. Elena, but he indicates he has not been telling them about the leg swelling. He has shortness of breath when lays down. He really is not able to walk or do much activity apparently, but does have shortness of breath on activity. Does not have any pain, pressure, tightness, or heaviness in his chest. He does have shortness of breath that wakes him up at night. He really does not try to sit up. He just lays there and he states it is really not that bad, but he has had significant swelling in his legs as mentioned above. PAST MEDICAL HISTORY: Positive for hyperlipidemia, diabetes, hypertension. He has been previously hospitalized here at [facility] and has had a history of multiple falls secondary to dehydration, urinary tract infection, acoustic neuroma with left-sided hemiparesis, systemic hypertension, diabetes mellitus type 2, diabetic neuropathy, nephropathy, chronic kidney disease, hyperlipidemia, dehydration, hypervolemia, gram-negative sepsis, history of CVA, history of coronary artery disease, although the degree is not known, benign prostatic hypertrophy, peptic ulcer disease. ALLERGIES: He denies any allergies to medications. SOCIAL HISTORY: Does not smoke at the present time, although did smoke 20 years ago. Does not drink alcoholic beverages. Lives at home. REVIEW OF SYSTEMS: GASTROINTESTINAL: He has got problems with constipation. GENITOURINARY: He denies. PULMONARY: He has occasional coughing. CONSTITUTIONAL: Negative. NEUROLOGICAL: He has left-sided weakness and numbness in the left side of his body. PHYSICAL EXAMINATION: GENERAL: Shows to be elderly overweight gentleman, in no respiratory distress, lying approximately 10 degrees to 20 degrees head of bed elevation. NECK: Supple. No jugular venous distention. LUNGS: Appear to be clear to auscultation. CARDIAC: S1 is normal. S2 is normal. Regular rate and rhythm. No heaves, thrills, or gallops noted. ABDOMEN: Soft, nontender. Positive bowel sounds. EXTREMITIES: There is no clubbing, cyanosis. There is approximately 2+ edema of the lower extremities. LABORATORY VALUES: His blood tests showed white count of 6.1, hemoglobin 12.5, and a platelet count of 240. Sodium is 136, potassium 4.1, chloride 105, bicarb 23, BUN 23, creatinine 2.5, and a glucose of 245. Uric acid is 7.8. Calcium is 9.1. Troponin less than 0.00. ProBNP is only 95. CK of 223. Lipase is 79. His chest x-ray has been performed reportedly shows congestive heart failure although I am not able to review that x-ray myself. Normal sinus rhythm, no ST or T-wave abnormalities noted on the EKG. ASSESSMENT AND PLAN: 1. Peripheral edema. 2. Diabetes with end-organ damage. 3. Chronic renal insufficiency secondary to diabetes. 4. Diabetic neuropathy. 5. History of acoustic neuroma. 6. History of CVA. This patient was seen in cardiac consultation. The patient does not really endorse any significant shortness of breath. In fact, he does wake up at night. He does not really have to move to a chair because of shortness of breath and indicates that his degree of shortness of breath is really not that symptomatic. His proBNP is only 95, which also works against the diagnosis of congestive heart failure. I will proceed with ordering an echocardiogram for evaluation of left ventricular systolic function. He has some chronic renal insufficiency already and that may get worse with significant diureses. His creatinine was 1.7 in 2016 and now 2.5. I will follow the patient along with you. However, I am not suspicious that this is left heart failure. He does require evaluation of right heart function as well as pulmonary artery systolic pressure. Venous duplex study should be performed. Consideration for V/Q scan should be also given. Rasheed Dickerson M.D. DR: EFFIE JOB#: [id number] CC:
[2019-05-06 01:08] LABS: LEUKOCYTE ESTERASE ,URINE 1+ (NEGATIVE)
--- NOTE | 2019-05-06 03:42 | NUR ---
NURSE NOTES: Patient is asleep, lying in semi rodriguez's; resting comfortably. No significant change of condition noted. Safety maintained. Continue with current plan of care.
[2019-05-06 04:00] VITALS: BP 122/78
[2019-05-06] MEDS: NovoLOG Insulin Flexpen SUBQ SCH ×4 (06:02→20:25)
--- NOTE | 2019-05-06 07:17 | NUR ---
HAND-OFF: Report given to CHASE Whitehead. Patient is awake, eating breakfast. Not in acute distress. Plan of care endorsed.
--- NOTE | 2019-05-06 07:23 | NUR ---
NURSE NOTES: Report received from CHASE Stone. Pt shows no signs of distress, A+Ox4, denies pain/SOB. Respirations are even and unlabored on room air. Pt has no IV site. Refusing IV insertion at this time. Previous nurse left message with Dr. Veras regarding no IV access. Bed is at lowest position, brakes engaged, siderails x2, bed alarm on, and call light within reach. Pt is in stable condition at this time; will continue to monitor. Addendum: 05/06/19 at 0724 by ROSIBEL ROBERTS RN WRONG PATIENT
[2019-05-06 07:25] LABS: BASOPHILS % (AUTO) 0.9 % (0.0-2.0); EOSINOPHILS % (AUTO) 4.9 % (0.0-3.0); HEMATOCRIT 42.7 % (42.0-52.0); HEMOGLOBIN 13.4 G/DL (14.2-18.0); LYMPHOCYTES % (AUTO) 26.5 % (20.0-45.0); MEAN CORPUSCULAR VOLUME 86 FL (80-99); MONOCYTES % (AUTO) 7.6 % (1.0-10.0); NEUTROPHILS % (AUTO) 60.1 % (45.0-75.0); PLATELET COUNT 246 K/UL (150-450); RED BLOOD COUNT 4.96 M/UL (4.70-6.10); RED CELL DISTRIBUTION WIDTH 14.1 % (11.6-14.8)
--- NOTE | 2019-05-06 07:25 | NUR ---
NURSE NOTES: Report received from CHASE Stone. Pt shows no signs of distress, A+Ox4, denies pain/SOB. Respirations are even and unlabored on room air. IV site is patent and intact. Bed is at lowest position, brakes engaged, siderails x2, bed alarm on, and call light within reach. Pt is in stable condition at this time; will continue to monitor.
[2019-05-06 07:36] LABS: ALANINE AMINOTRANSFERASE 15 U/L (12-78); ALBUMIN 3.6 G/DL (3.4-5.0); ALBUMIN/GLOBULIN RATIO 0.8 (1.0-2.7); ALKALINE PHOSPHATASE 77 U/L (46-116); ANION GAP 2 mmol/L (5-15); ASPARTATE AMINO TRANSFERASE 13 U/L (15-37); BILIRUBIN,TOTAL 0.5 MG/DL (0.2-1.0); BLOOD UREA NITROGEN 27 mg/dL (7-18); CALCIUM 9.3 MG/DL (8.5-10.1); CARBON DIOXIDE 27 MMOL/L (21-32); CHLORIDE 105 MMOL/L (98-107); CHOLESTEROL 157 MG/DL (< 200); CREATININE 2.6 MG/DL (0.55-1.30); HDL CHOLESTEROL 42 MG/DL (40-60); POTASSIUM 4.4 MMOL/L (3.5-5.1); SODIUM 134 MMOL/L (136-145); TRIGLYCERIDES 92 MG/DL (30-150)
[2019-05-06 08:00] VITALS: BP 125/71
[2019-05-06] MEDS: Heparin 5000 units/ml inj SUBQ SCH ×2 (08:18→20:25)
--- NOTE | 2019-05-06 10:17 | Diagnostic Imaging Report ---
Indication: Abnormal renal function Technique: A plantar grayscale and color Doppler imaging of the kidneys and bladder Comparison: 12/08/2015 Findings: Right kidney measures 9.5 cm in length. Left kidney measures 10.5 cm in length. Both kidneys demonstrate normal echogenicity. Color flow to the bilateral kidneys appears normal bilaterally. Within the midportion of the left kidney there is a apparent hypoechoic structure which mildly deforms the renal contour. This may represent a dromedary hump, an anatomic variation. Bladder is distended with a volume of 597 mL. No post void images were obtained. IMPRESSION: * No hydronephrosis or sonographically appreciable renal stone. * Renal echogenicity appears within normal limits. * Mild contour bulge in the mid aspect of the left kidney may be related to a dromedary hump. Follow-up however is recommended as a developing mass is not excluded. * Bladder distended with a volume of 597 mL. Patient reportedly could not void. Correlate for urinary retention. Consider catheterization as clinically indicated.
--- NOTE | 2019-05-06 11:03 | Diagnostic Imaging Report ---
Indication: Chest pain Technique: XRAY Chest 1v Comparison: 04/17/2014 Findings: Heart size and mediastinal contours are within normal limits for AP technique and stable compared to the prior exam. There is no focal airspace consolidation, pneumothorax or pleural effusion. Osseous structures demonstrate no acute abnormality. Impression: No radiographic evidence of acute cardiopulmonary disease.
[2019-05-06 12:00] VITALS: BP 121/58
--- NOTE | 2019-05-06 14:42 | NUR ---
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
--- NOTE | 2019-05-06 14:56 | History & Physical ---
History and Physical History & Physicial Adithya Verduzco MD May 06, 2019 14:56
[2019-05-06 16:00] VITALS: BP 141/79
--- NOTE | 2019-05-06 16:00 | NUR ---
NURSE NOTES: Pt urinated 3 times throughout the day. Asked patient whether he feels like he cannot void and he said no. Pt states that he can urinate easily. Pt saturated 2 pads with urine and collected about 200 ml of urine in the condom cath. Will continue to monitor output.
--- NOTE | 2019-05-06 18:28 | CDS Physician Query ---
Clarification is required for compliance, coding accuracy, and to reflect severity of illness for this patient Dear Dr. Ahn___ Date: _05/06/2019 CDS Name: Pilar Presentation: presented to the hospital because of increasing leg swelling, he has shortness of breath when lays down. He really is not able to walk or do much activity apparently, but does have shortness of breath on activity BNP:95 Cr:2.5,2.6 BUN: 26,27 CXR: Findings: Heart size and mediastinal contours are within normal limits for AP technique and stable compared to the prior exam. There is no focal airspace consolidation, pneumothorax or pleural effusion. Osseous structures demonstrate no acute abnormality. Renal U.S: IMPRESSION: * No hydronephrosis or sonographically appreciable renal stone. * Renal echogenicity appears within normal limits. * Mild contour bulge in the mid aspect of the left kidney may be related to a dromedary hump. Follow-up however is recommended as a developing mass is not excluded. * Bladder distended with a volume of 597 mL Rx : IV hydration and IV lasix 40mg Please respond to the following question: Is there a diagnosis specific to the reason of peripheral edema ? If so please state below. PHYSICIAN RESPONSE: [ ] Fluid overload [ ] CKD [ ] Acute on chronic renal failure [ ] Left side heart failure Present on Admission: [] Yes [] No [] Clinically Undetermined Physician signature Date Please also document in your Progress Notes and/or Discharge Summary and indicate if the condition was present on admission. JERRYD
--- NOTE | 2019-05-06 19:09 | NUR ---
HAND-OFF: Report given to CHASE Stone. Pt is in stable condition. Sitting up, watching tv. Plan of care endorsed.
--- NOTE | 2019-05-06 19:28 | NUR ---
NURSE NOTES: Received report from CHASE Whitehead. Patient is awake lying semi-rodriguez's; resting comfortably. No signs of acute distress noted; denies pain at this time. AOx4; able to make needs known. Hard of hearing on the left ear. Checked IV site; patent and flushed. No erythema, bleeding, or infiltration noted. Condom catheter draining yellow urine. Bed at lowest position, brakes on, siderails up x3. Call light within reach. Will continue to monitor.
[2019-05-06 20:00] VITALS: BP 150/73
[2019-05-06] MEDS: Tamsulosin 0.4mg cap ORAL SCH (20:19)
[2019-05-07] VITALS: BP 132/71
--- NOTE | 2019-05-07 01:00 | History and Physical Report ---
DATE OF ADMISSION: 05/06/2019 CHIEF COMPLAINT: Shortness of breath and pedal edema. HISTORY OF PRESENT ILLNESS: This is an 83-year-old gentleman with past medical history significant for diabetes type 2, hypertension, morbid obesity, congestive heart failure, history of acoustic neuroma status post resection, who has presented to the hospital. After was seen in my office, the patient was noted to have worsening of the leg edema associated with shortness of breath, decreased mobility. Shortly after initial evaluation in my office, the patient was advised to come to the emergency room for further evaluation including duplex of lower extremity and possible admission. Upon arrival to the emergency room, the patient was confirmed to have mild pulmonary congestion on the chest x-ray and then subsequently, the patient was admitted to the hospital with acute on chronic congestive heart failure with fluid overload. PAST MEDICAL HISTORY/PAST SURGICAL HISTORY: As above. History of diabetes type 2, hypertension, history of urinary tract infection, acoustic neuroma with the left-sided hemiparesis, systemic hypertension, diabetic neuropathy and diabetic nephropathy, chronic kidney disease, dyslipidemia, history of CVA, as well as gram-negative miles sepsis, coronary artery disease, BPH, and peptic ulcer disease. MEDICATIONS AT HOME: Please refer to medication reconciliation. ALLERGIES: No known drug allergies. SOCIAL HISTORY: Denies any smoking, alcohol, or drugs. Lives at home with the and daughter. FAMILY HISTORY: Noncontributory. REVIEW OF SYSTEMS: Mostly as above. Denies any dysuria, frequency, or hematuria. Complained about weakness and fatigue. Denies any hemoptysis or hematochezia. Complained of pedal edema. Complained of shortness of breath. Denies any loss of consciousness. Denies any fall or head trauma. PHYSICAL EXAMINATION: VITAL SIGNS: On admission from the ER, temperature 98.1, pulse of 93, respirations 20, and blood pressure 113/71. GENERAL: The patient is awake and responsive, in no acute distress. HEAD AND NECK: Pupils are reactive to light. Extraocular movements intact. NECK: Supple. No JVD. LUNGS: Good air entry. No wheezing or rales. Decreased air in bases. HEART: S1, S2. Distant heart sounds. No gallops. ABDOMEN: Soft and nondistended. Morbidly obese. EXTREMITIES: No cyanosis or clubbing. A +2 edema in bilateral lower extremities. NEUROLOGIC: Cranial nerves II through XII is grossly intact. Motor is 5/5 in all extremities except left upper extremity, which is 1/5. RECTAL/GENITOURINARY: Refused and deferred. PSYCHIATRIC: Mood and affect is intact. LABORATORY DATA: On admission from the ER, WBC of 6.1, hemoglobin 12, hematocrit 38, and platelets is 240,000. Sodium 136, potassium 4.9, chloride 105, bicarb 23, BUN 26, creatinine 2.5, and glucose is 245. Uric acid 7.8. Liver function essentially unremarkable. Troponin 0.00. Albumin is 3.7. Urinalysis, +1 leukocytes. Urine eosinophils negative. Renal ultrasound was noted to be no hydronephrosis or sonographic appreciation of renal stone. Renal echogenicity appears to be within normal limits. Mild contour bulging in the mid aspect of the left kidney, may be related to the dromedary hump, follow-up, however recommend. Bladder distention with a volume of 597. The patient reported that he could not void correlated with urine retention. ASSESSMENT: 1. Pedal edema with fluid overload. 2. Urinary retention. 3. Diabetes type 2. 4. Diabetic nephropathy. 5. Diabetic neuropathy. 6. Chronic kidney disease as a result of the diabetes poorly controlled. 7. Hypertension. 8. Dyslipidemia. 9. Pedal edema. PLAN: 1. Admit the patient to monitored unit. 2. We will follow up laboratory. 3. Accu-Chek with sliding scale. 4. Code status is Full Code. 5. Lasix IV. 6. DVT prophylaxis with heparin subcutaneous. 7. Discussed the case with Dr. Winter, Pulmonary Critical Care, as well as Dr. Dickerson from Cardiology. Adithya Verduzco M.D. DR: DENISE JOB#: [id number] CC: BLADIMIR
--- NOTE | 2019-05-07 01:26 | NUR ---
TRANSFER TO FLOOR: Report given to CHASE Gipson. Patient was transferred to Med-Surg floor from Telemetry unit without incident. No signs of acute distress noted; denies pain at this time. Patient was taken off Tele box; tolerated well. Belongings list checked with receiving RN. Cari, patient's , made aware of transfer. Bed at lowest position, brakes on, siderails up x3. Call light within reach.
[2019-05-07] MEDS ORDERED: Zolpidem 5mg tab ORAL PRN (01:36)
[2019-05-07] MEDS ORDERED: LORazepam Inj 2mg/ml 1ml IV PRN (01:40)
[2019-05-07] MEDS ORDERED: Morphine Sulfate 2mg/ml Inj(IV/IM USE ONLY) IVP PRN (01:40)
--- NOTE | 2019-05-07 01:40 | NUR ---
NURSE NOTES: PATIENT TRANSFERRED FROM [facility] IN STABLE CONDITION, ALERT/ORIENTED X4, DENIES PAIN/VERY PLEASANT, NO SIGNS AND SYMPTOMS OF ACUTE CARDIO RESPIRATORY DISTRESS/SHORTNESS OF BREATH, DENIES CHEST PAIN, BILATERAL LOWER EXTREMITIES EDEMATOUS, ELEVATED EACH EXTREMITY ON PILLOW FOR COMFORT/PRESSURE RELIEF, TOLERATING WELL. NO REPORT OF GI DISCOMFORT, NO N/V/D. IV INTACT TO RIGHT HAND/GAUGE 20, NO REDNESS/SWELLING NOTED TO SITE. CONDOM CATHETER INTACT DRAINING URINE VIA GRAVITY, NO SIGNS OF HEMATURIA, TUBING ANCHORED TO THIGH. SIDE RAILS UP X3/BED IN LOWEST POSITION FOR SAFETY, ENCOURAGED PATIENT TO UTILIZE CALL LIGHT FOR ASSISTANCE, VERBALIZED UNDERSTANDING. NAD.
[2019-05-07] MEDS ORDERED: Miralax 17gm pkt ORAL PRN (01:41)
[2019-05-07 04:00] VITALS: BP 125/67
--- NOTE | 2019-05-07 06:14 | NUR ---
NURSE NOTES: RESTED WELL, NO SIGNIFICANT CHANGE OF CONDITION NOTED THROUGHOUT THE NIGHT. SAFETY MAINTAINED. NAD.
[2019-05-07] MEDS: NovoLOG Insulin Flexpen SUBQ SCH ×4 (06:57→21:53)
--- NOTE | 2019-05-07 07:57 | NUR ---
NURSE NOTES: pt resting in bed. a/o x 4, calm, cooperative. Denies pain, no SOB noted. pts IV out, will start new IV insert. Amadeo leg swelling noted. bed in low position, bed alarm on . call light within reach. fall precaution maintained. will continue to monitor.
[2019-05-07 08:00] VITALS: BP 115/60
[2019-05-07] MEDS: Heparin 5000 units/ml inj SUBQ SCH ×2 (08:51→21:52)
--- NOTE | 2019-05-07 09:08 | Pulmonology Progress Note ---
Assessment/Plan Problems: (1) Edema (2) Anemia (3) CKD (chronic kidney disease) (4) Diabetes mellitus out of control (5) Frequent falls Assessment/Plan NO CHF on xray echo reviewed renal US was negative pt c an go home with outpatient f/u Subjective ROS Limited/Unobtainable: No Constitutional: Reports: no symptoms HEENT: Repors: no symptoms Allergies: Coded Allergies: No Known Allergies (Unverified , 01/04/13) Objective Last 24 Hour Vital Signs Date Time Temp Pulse Resp B/P (MAP) Pulse Ox O2 Delivery O2 Flow Rate FiO2 05/07/19 08:48 81 115/60 05/07/19 04:00 98.4 65 18 125/67 (86) 97 05/07/19 00:00 98.0 79 18 132/71 (91) 97 05/06/19 21:00 Room Air 05/06/19 20:00 77 05/06/19 20:00 98.6 83 18 150/73 (98) 95 05/06/19 16:00 73 05/06/19 16:00 98.2 77 18 141/79 (99) 96 05/06/19 12:00 97.3 78 20 121/58 (79) 95 Intake and Output 05/06/19 05/07/19 19:00 07:00 Intake Total 280 ml Output Total 1000 ml Balance 280 ml -1000 ml Intake Oral 280 ml Output Urine Total 1000 ml # Voids 3 General Appearance: WD/WN HEENT: normocephalic Respiratory/Chest: chest wall non-tender, lungs clear Cardiovascular: normal peripheral pulses, normal rate Abdomen: normal bowel sounds, soft, non tender Genitourinary: normal external genitalia Neurologic/Psychiatric: cost estimator II-XII grossly normal Current Medications Medications (Trade) Dose Ordered Sig/Susie Route PRN Reason Start Time Stop Time Status Last Admin Dose Admin Acetaminophen (Tylenol) 650 mg Q4H PRN ORAL fever (temp>100.5F) 05/07/19 01:36 06/04/19 01:35 Amlodipine Besylate (Norvasc) 5 mg DAILY ORAL 05/07/19 09:00 06/05/19 08:59 05/07/19 08:48 Dextrose (Dextrose 50%) 25 ml Q30M PRN IV Hypoglycemia 05/07/19 01:45 06/04/19 19:44 Dextrose (Dextrose 50%) 50 ml Q30M PRN IV Hypoglycemia 05/07/19 01:45 06/04/19 19:44 Gabapentin (Neurontin) 300 mg QID ORAL 05/07/19 09:00 06/04/19 20:59 05/07/19 08:48 Heparin Sodium (Porcine) (Heparin 5000 units/ml) 5,000 units EVERY 12 HOURS SUBQ 05/07/19 09:00 06/04/19 20:59 05/07/19 08:51 Insulin Aspart (NovoLOG) BEFORE MEALS AND HS SUBQ 05/07/19 06:30 06/04/19 20:59 05/07/19 06:57 Lorazepam (Ativan 2mg/ml 1ml) 0.5 mg Q4H PRN IV For Anxiety 05/07/19 01:40 05/12/19 01:39 Morphine Sulfate (Morphine Sulfate) 1 mg Q4H PRN IVP For Pain 05/07/19 01:40 05/12/19 01:39 Ondansetron HCl (Zofran) 4 mg Q6H PRN IVP Nausea & Vomiting 05/07/19 01:45 06/04/19 19:44 Polyethylene Glycol (Miralax) 17 gm HSPRN PRN ORAL Constipation 05/07/19 01:41 06/04/19 01:40 Tamsulosin HCl (Flomax) 0.4 mg BEDTIME ORAL 05/07/19 21:00 06/04/19 20:59 Zolpidem Tartrate (Ambien) 5 mg HSPRN PRN ORAL Insomnia 05/07/19 01:36 05/12/19 01:35 Gaby Winter MD May 07, 2019 09:08
--- NOTE | 2019-05-07 10:17 | Cardiology Progress Note ---
Assessment/Plan Assessment/Plan 1. Peripheral edema. 2. Diabetes with end-organ damage. 3. Chronic renal insufficiency secondary to diabetes. 4. Diabetic neuropathy. 5. History of acoustic neuroma. 6. History of CVA. echo reprot not availbe reviwed echo myself lv fcuntion normal rv is not enlarged edeam improved home soon Subjective Cardiovascular: Denies: chest pain, lightheadedness Respiratory: Denies: shortness of breath Gastrointestinal/Abdominal: Denies: abdomen distended Genitourinary: Denies: no symptoms Objective Last 24 Hour Vital Signs Date Time Temp Pulse Resp B/P (MAP) Pulse Ox O2 Delivery O2 Flow Rate FiO2 05/07/19 09:00 Room Air 05/07/19 08:48 81 115/60 05/07/19 08:00 97.2 81 18 115/60 (78) 97 05/07/19 04:00 98.4 65 18 125/67 (86) 97 05/07/19 00:00 98.0 79 18 132/71 (91) 97 05/06/19 21:00 Room Air 05/06/19 20:00 77 05/06/19 20:00 98.6 83 18 150/73 (98) 95 05/06/19 16:00 73 05/06/19 16:00 98.2 77 18 141/79 (99) 96 05/06/19 12:00 97.3 78 20 121/58 (79) 95 General Appearance: no apparent distress, alert Cardiovascular: normal rate Respiratory/Chest: chest wall non-tender, lungs clear Abdomen: normal bowel sounds, non tender, soft Extremities: no swelling Intake and Output 05/06/19 05/07/19 19:00 07:00 Intake Total 280 ml Output Total 1000 ml Balance 280 ml -1000 ml Intake Oral 280 ml Output Urine Total 1000 ml # Voids 3 Rasheed Dickerson MD May 07, 2019 10:17
[2019-05-07 12:00] VITALS: BP 157/76
--- NOTE | 2019-05-07 15:14 | Consultation ---
Consult Note Consult Note asked to eval for rising Cr Patient interviewed examined data reviewed cc: increasing leg swelling. for a couple of weeks, He has shortness of breath when lays down. He really is not able to walk or do much activity apparently, but does have shortness of breath on activity. Does not have any pain, pressure, tightness, or heaviness in his chest. He does have shortness of breath that wakes him up at night. but he has had significant swelling in his legs as mentioned above. Assessment/Plan CKD- likely diabetic Nephropathy h/o Urinary retention Hypertensive Nephrosclerosis High Lipids BPH h/o CVA h/o Acoustic Neurinoma 55 to 60 % Ej Fx Kidney QUINTIN urine studies BS and BP check avoid Nephrotoxics Up dose flomax monitor renal parameters * No hydronephrosis or sonographically appreciable renal stone. * Renal echogenicity appears within normal limits. * Mild contour bulge in the mid aspect of the left kidney may be related to a dromedary hump. Follow-up however is recommended as a developing mass is not excluded. * Bladder distended with a volume of 597 mL. Patient reportedly could not void. Correlate for urinary retention. Consider catheterization as clinically indicated. Minor Alford MD May 07, 2019 15:14
[2019-05-07 16:00] VITALS: BP 131/72
--- NOTE | 2019-05-07 17:05 | NUR ---
PT note PT meena completed, treatment initiated. Patient is noted to have lateral instability on his left ankle during gait training. He has had frequent falls due to this as he is unable to don his left AFO independently. Recommend for patient to have home health PT and OT to train him to don his AFO independently to minimize risk for falls. Addendum: 05/07/19 at [address] PT Amended: Links added.
--- NOTE | 2019-05-07 17:29 | Internal Med Progress Note ---
Subjective Date of Service: May 07, 2019 Physician Name Adis Kenny Attending Physician Adithya Verduzco MD Current Medications Medications (Trade) Dose Ordered Sig/Susie Route PRN Reason Start Time Stop Time Status Last Admin Dose Admin Acetaminophen (Tylenol) 650 mg Q4H PRN ORAL fever (temp>100.5F) 05/07/19 01:36 06/04/19 01:35 Amlodipine Besylate (Norvasc) 5 mg DAILY ORAL 05/07/19 09:00 06/05/19 08:59 05/07/19 08:48 Dextrose (Dextrose 50%) 25 ml Q30M PRN IV Hypoglycemia 05/07/19 01:45 06/04/19 19:44 Dextrose (Dextrose 50%) 50 ml Q30M PRN IV Hypoglycemia 05/07/19 01:45 06/04/19 19:44 Docusate Sodium (Colace) 100 mg THREE TIMES A DAY ORAL 05/07/19 18:00 06/06/19 17:59 Gabapentin (Neurontin) 300 mg QID ORAL 05/07/19 09:00 06/04/19 20:59 05/07/19 13:29 Heparin Sodium (Porcine) (Heparin 5000 units/ml) 5,000 units EVERY 12 HOURS SUBQ 05/07/19 09:00 06/04/19 20:59 05/07/19 08:51 Insulin Aspart (NovoLOG) BEFORE MEALS AND HS SUBQ 05/07/19 06:30 06/04/19 20:59 05/07/19 16:25 Lorazepam (Ativan 2mg/ml 1ml) 0.5 mg Q4H PRN IV For Anxiety 05/07/19 01:40 05/12/19 01:39 Morphine Sulfate (Morphine Sulfate) 1 mg Q4H PRN IVP For Pain 05/07/19 01:40 05/12/19 01:39 Ondansetron HCl (Zofran) 4 mg Q6H PRN IVP Nausea & Vomiting 05/07/19 01:45 06/04/19 19:44 Pantoprazole (Protonix) 40 mg EVERY 12 HOURS ORAL 05/07/19 21:00 06/06/19 20:59 Polyethylene Glycol (Miralax) 17 gm HSPRN PRN ORAL Constipation 05/07/19 01:41 06/04/19 01:40 Tamsulosin HCl (Flomax) 0.4 mg BID ORAL 05/07/19 18:00 06/04/19 20:59 Zolpidem Tartrate (Ambien) 5 mg HSPRN PRN ORAL Insomnia 05/07/19 01:36 05/12/19 01:35 Allergies: Coded Allergies: No Known Allergies (Unverified , 01/04/13) Subjective 83 YO M admitted with edema. Now Cover for Int Med-Dr Verduzco Objective Last Vital Signs Date Time Temp Pulse Resp B/P (MAP) Pulse Ox O2 Delivery O2 Flow Rate FiO2 05/07/19 16:00 98.3 88 18 131/72 (91) 95 05/07/19 09:00 Room Air Intake and Output 05/06/19 05/07/19 18:59 06:59 Intake Total 420 ml Output Total 1000 ml Balance 420 ml -1000 ml Intake Oral 420 ml Output Urine Total 1000 ml # Voids 4 Objective PHYSICAL EXAMINATION: GENERAL: The patient is awake and responsive, in no acute distress. HEAD AND NECK: Pupils are reactive to light. Extraocular movements intact. NECK: Supple. No JVD. LUNGS: Good air entry. No wheezing or rales. Decreased air in bases. HEART: S1, S2. Distant heart sounds. No gallops. ABDOMEN: Soft and nondistended. Morbidly obese. EXTREMITIES: No cyanosis or clubbing. A +2 edema in bilateral lower extremities. NEUROLOGIC: Cranial nerves II through XII is grossly intact. Motor is 5/5 in all extremities except left upper extremity, which is 1/5. RECTAL/GENITOURINARY: Refused and deferred. PSYCHIATRIC: Mood and affect is intact. Assessment/Plan Assessment/Plan ASSESSMENT: 1. Pedal edema with fluid overload. 2. Urinary retention. 3. Diabetes type 2. 4. Diabetic nephropathy. 5. Diabetic neuropathy. 6. Chronic kidney disease as a result of the diabetes poorly controlled. 7. Hypertension. 8. Dyslipidemia. 9. Pedal edema. PLAN: 1. Admit the patient to monitored unit. 2. We will follow up laboratory. 3. Accu-Chek with sliding scale. 4. Code status is Full Code. 5. Lasix IV. 6. DVT prophylaxis with heparin subcutaneous. 7. Discussed the case with Dr. Winter, Pulmonary Critical Care 8. Dr. Dickerson from Cardiology. Adis Kenny MD May 07, 2019 17:29
[2019-05-07] MEDS: Docusate 100mg cap ORAL SCH (17:31)
[2019-05-07] MEDS: Tamsulosin 0.4mg cap ORAL SCH (17:31)
--- NOTE | 2019-05-07 19:35 | NUR ---
NURSE NOTES: pt resting in bed. a/o x 4, calm, cooperative. Denies pain, no SOB noted. bed locked, in low position, side rails x2, bed alarm on . call light within reach. fall precautions maintained. will continue to monitor.
[2019-05-07 20:50] VITALS: BP 161/79
[2019-05-07] MEDS ORDERED: Tamsulosin 0.4mg cap ORAL SCH (21:00)
[2019-05-08] VITALS: BP 130/79
[2019-05-08 04:00] VITALS: BP 127/77
[2019-05-08] MEDS: NovoLOG Insulin Flexpen SUBQ SCH ×4 (07:03→20:41)
--- NOTE | 2019-05-08 07:45 | NUR ---
NURSE NOTES: Nurse report given by CHASE Sorenson. Patient's in bed, AO x 4, no s/s of acute of distress or SOB. Bed at lowest position, break engaged, call light within reach. IV site is patent and asymptomatic.
--- NOTE | 2019-05-08 07:52 | NUR ---
HAND-OFF: Report given to CHASE Manning
[2019-05-08 08:00] VITALS: BP 112/76
[2019-05-08 08:07] LABS: BASOPHILS % (AUTO) 1.2 % (0.0-2.0); EOSINOPHILS % (AUTO) 4.3 % (0.0-3.0); HEMATOCRIT 43.8 % (42.0-52.0); HEMOGLOBIN 13.9 G/DL (14.2-18.0); MEAN CORPUSCULAR VOLUME 86 FL (80-99); MONOCYTES % (AUTO) 9.1 % (1.0-10.0); NEUTROPHILS % (AUTO) 56.4 % (45.0-75.0); PLATELET COUNT 194 K/UL (150-450); RED BLOOD COUNT 5.08 M/UL (4.70-6.10); RED CELL DISTRIBUTION WIDTH 14.4 % (11.6-14.8); WHITE BLOOD COUNT 6.2 K/UL (4.8-10.8)
[2019-05-08 08:38] LABS: ALANINE AMINOTRANSFERASE 12 U/L (12-78); ALBUMIN 3.4 G/DL (3.4-5.0); ALBUMIN/GLOBULIN RATIO 0.8 (1.0-2.7); ALKALINE PHOSPHATASE 73 U/L (46-116); ANION GAP 6 mmol/L (5-15); ASPARTATE AMINO TRANSFERASE 17 U/L (15-37); BILIRUBIN,TOTAL 0.6 MG/DL (0.2-1.0); BLOOD UREA NITROGEN 28 mg/dL (7-18); CALCIUM 9.9 MG/DL (8.5-10.1); CARBON DIOXIDE 26 MMOL/L (21-32); CHLORIDE 104 MMOL/L (98-107); CREATINE KINASE 221 U/L (26-308); CREATININE 2.2 MG/DL (0.55-1.30); FERRITIN 80 NG/ML (8-388); GAMMA GLUTAMYL TRANSPEPTIDASE 12 U/L (5-85); PHOSPHORUS 2.6 MG/DL (2.5-4.9); POTASSIUM 4.9 MMOL/L (3.5-5.1); SODIUM 136 MMOL/L (136-145)
[2019-05-08] MEDS: Tamsulosin 0.4mg cap ORAL SCH ×2 (08:49→18:25)
[2019-05-08] MEDS: Docusate 100mg cap ORAL SCH ×3 (08:49→18:25)
[2019-05-08] MEDS: Heparin 5000 units/ml inj SUBQ SCH ×2 (08:53→20:40)
[2019-05-08 09:21] LABS: % IRON SATURATION 24 % (15-50); IRON 67 ug/dL (50-175); TOTAL IRON BINDING CAPACITY 278 ug/dL (250-450)
[2019-05-08 12:00] VITALS: BP 139/71
--- NOTE | 2019-05-08 12:06 | Nephrology Progress Note ---
Assessment/Plan Problem List: (1) Renal failure (ARF), acute on chronic (2) CKD (chronic kidney disease) (3) Urinary retention (4) Hypertensive nephropathy Assessment CKD- likely diabetic Nephropathy h/o Urinary retention Hypertensive Nephrosclerosis High Lipids BPH h/o CVA h/o Acoustic Neurinoma 55 to 60 % Ej Fx Plan Kidney QUINTIN noted- Retention of urine urine studies BS and BP check avoid Nephrotoxics Up dose flomax monitor renal parameters Subjective ROS Limited/Unobtainable: No Constitutional: Reports: malaise Objective Objective Last 24 Hour Vital Signs Date Time Temp Pulse Resp B/P (MAP) Pulse Ox O2 Delivery O2 Flow Rate FiO2 05/08/19 09:00 Room Air 05/08/19 08:50 93 156/87 05/08/19 08:00 98.8 95 18 112/76 (88) 95 05/08/19 04:00 97.0 86 18 127/77 (94) 96 05/08/19 00:00 98.1 86 18 130/79 (96) 96 05/07/19 21:00 Room Air 05/07/19 20:50 98.1 85 17 161/79 (106) 98 05/07/19 16:00 98.3 88 18 131/72 (91) 95 Intake and Output 05/07/19 05/08/19 19:00 07:00 Intake Total 950 ml Output Total 400 ml Balance 950 ml -400 ml Other 950 ml Output Urine Total 400 ml # Voids 2 # Bowel Movements 1 Laboratory Tests 05/08/19 05:30: White Blood Count 6.2, Red Blood Count 5.08, Hemoglobin 13.9L, Hematocrit 43.8, Mean Corpuscular Volume 86, Mean Corpuscular Hemoglobin 27.4, Mean Corpuscular Hemoglobin Concent 31.8L, Red Cell Distribution Width 14.4, Platelet Count 194, Mean Platelet Volume 6.3L, Neutrophils (%) (Auto) 56.4, Lymphocytes (%) (Auto) 29.0, Monocytes (%) (Auto) 9.1, Eosinophils (%) (Auto) 4.3H, Basophils (%) (Auto ) 1.2, Sodium Level 136, Potassium Level 4.9, Chloride Level 104, Carbon Dioxide Level 26, Anion Gap 6, Blood Urea Nitrogen 28H, Creatinine 2.2H, Estimat Glomerular Filtration Rate , Glucose Level 178H, Hemoglobin A1c 9.4H, Uric Acid 8.7H, Calcium Level 9.9, Phosphorus Level 2.6, Magnesium Level 1.7L, Iron Level 67, Total Iron Binding Capacity 278, Percent Iron Saturation 24, Unsaturated Iron Binding 211, Ferritin 80, Total Bilirubin 0.6, Gamma Glutamyl Transpeptidase 12, Aspartate Amino Transf (AST/SGOT) 17, Alanine Aminotransferase (ALT/SGPT) 12, Alkaline Phosphatase 73, Total Creatine Kinase 221, Troponin I 0.000, C-Reactive Protein, Quantitative 1.8H, Pro-B-Type Natriuretic Peptide 71, Total Protein 7.8, Albumin 3.4, Globulin 4.4, Albumin/ Globulin Ratio 0.8L, Vitamin B12 Level 258, Folate 46.0, Thyroid Stimulating Hormone (TSH) 1.837 05/08/19 07:00: Urine Eosinophils None seen, Urine Random Sodium 145H Height (Feet): 5 Height (Inches): 11.00 Weight (Pounds): 260 General Appearance: no apparent distress Objective no change Minor Alford MD May 08, 2019 12:06
--- NOTE | 2019-05-08 15:34 | Internal Med Progress Note ---
Subjective Date of Service: May 08, 2019 Physician Name Adis Kenny Attending Physician Adithya Verduzco MD Current Medications Medications (Trade) Dose Ordered Sig/Susie Route PRN Reason Start Time Stop Time Status Last Admin Dose Admin Acetaminophen (Tylenol) 650 mg Q4H PRN ORAL fever (temp>100.5F) 05/07/19 01:36 06/04/19 01:35 Amlodipine Besylate (Norvasc) 5 mg DAILY ORAL 05/07/19 09:00 06/05/19 08:59 05/08/19 08:50 Dextrose (Dextrose 50%) 25 ml Q30M PRN IV Hypoglycemia 05/07/19 01:45 06/04/19 19:44 Dextrose (Dextrose 50%) 50 ml Q30M PRN IV Hypoglycemia 05/07/19 01:45 06/04/19 19:44 Docusate Sodium (Colace) 100 mg THREE TIMES A DAY ORAL 05/07/19 18:00 06/06/19 17:59 05/08/19 12:41 Gabapentin (Neurontin) 300 mg QID ORAL 05/07/19 09:00 06/04/19 20:59 05/08/19 12:41 Heparin Sodium (Porcine) (Heparin 5000 units/ml) 5,000 units EVERY 12 HOURS SUBQ 05/07/19 09:00 06/04/19 20:59 05/08/19 08:53 Insulin Aspart (NovoLOG) BEFORE MEALS AND HS SUBQ 05/07/19 06:30 06/04/19 20:59 05/08/19 11:28 Lorazepam (Ativan 2mg/ml 1ml) 0.5 mg Q4H PRN IV For Anxiety 05/07/19 01:40 05/12/19 01:39 Morphine Sulfate (Morphine Sulfate) 1 mg Q4H PRN IVP For Pain 05/07/19 01:40 05/12/19 01:39 Ondansetron HCl (Zofran) 4 mg Q6H PRN IVP Nausea & Vomiting 05/07/19 01:45 06/04/19 19:44 Pantoprazole (Protonix) 40 mg EVERY 12 HOURS ORAL 05/07/19 21:00 06/06/19 20:59 05/08/19 08:49 Polyethylene Glycol (Miralax) 17 gm HSPRN PRN ORAL Constipation 05/07/19 01:41 06/04/19 01:40 Tamsulosin HCl (Flomax) 0.4 mg BID ORAL 05/07/19 18:00 06/04/19 20:59 05/08/19 08:49 Zolpidem Tartrate (Ambien) 5 mg HSPRN PRN ORAL Insomnia 05/07/19 01:36 05/12/19 01:35 Allergies: Coded Allergies: No Known Allergies (Unverified , 01/04/13) ROS Limited/Unobtainable: No Constitutional: Reports: no symptoms HEENT: Reports: no symptoms Cardiovascular: Reports: no symptoms Respiratory: Reports: no symptoms Gastrointestinal/Abdominal: Reports: no symptoms Neurologic/Psychiatric: Reports: no symptoms Subjective 83 YO M admitted with edema. Now Cover for Int Nikolay-Dr Verduzco Objective Last Vital Signs Date Time Temp Pulse Resp B/P (MAP) Pulse Ox O2 Delivery O2 Flow Rate FiO2 05/08/19 12:00 98.4 84 16 139/71 (93) 96 05/08/19 09:00 Room Air Laboratory Tests Test 05/08/19 05:30 05/08/19 07:00 White Blood Count 6.2 K/UL (4.8-10.8) Red Blood Count 5.08 M/UL (4.70-6.10) Hemoglobin 13.9 G/DL (14.2-18.0) L Hematocrit 43.8 % (42.0-52.0) Mean Corpuscular Volume 86 FL (80-99) Mean Corpuscular Hemoglobin 27.4 PG (27.0-31.0) Mean Corpuscular Hemoglobin Concent 31.8 G/DL (32.0-36.0) L Red Cell Distribution Width 14.4 % (11.6-14.8) Platelet Count 194 K/UL (150-450) Mean Platelet Volume 6.3 FL (6.5-10.1) L Neutrophils (%) (Auto) 56.4 % (45.0-75.0) Lymphocytes (%) (Auto) 29.0 % (20.0-45.0) Monocytes (%) (Auto) 9.1 % (1.0-10.0) Eosinophils (%) (Auto) 4.3 % (0.0-3.0) H Basophils (%) (Auto) 1.2 % (0.0-2.0) Sodium Level 136 MMOL/L (136-145) Potassium Level 4.9 MMOL/L (3.5-5.1) Chloride Level 104 MMOL/L (98-107) Carbon Dioxide Level 26 MMOL/L (21-32) Anion Gap 6 mmol/L (5-15) Blood Urea Nitrogen 28 mg/dL (7-18) H Creatinine 2.2 MG/DL (0.55-1.30) H Estimat Glomerular Filtration Rate mL/min (>60) Glucose Level 178 MG/DL (74-106) H Hemoglobin A1c 9.4 % (4.3-6.0) H Uric Acid 8.7 MG/DL (2.6-7.2) H Calcium Level 9.9 MG/DL (8.5-10.1) Phosphorus Level 2.6 MG/DL (2.5-4.9) Magnesium Level 1.7 MG/DL (1.8-2.4) L Iron Level 67 ug/dL (50-175) Total Iron Binding Capacity 278 ug/dL (250-450) Percent Iron Saturation 24 % (15-50) Unsaturated Iron Binding 211 ug/dL (112-346) Ferritin 80 NG/ML (8-388) Total Bilirubin 0.6 MG/DL (0.2-1.0) Gamma Glutamyl Transpeptidase 12 U/L (5-85) Aspartate Amino Transf (AST/SGOT) 17 U/L (15-37) Alanine Aminotransferase (ALT/SGPT) 12 U/L (12-78) Alkaline Phosphatase 73 U/L (46-116) Total Creatine Kinase 221 U/L (26-308) Troponin I 0.000 ng/mL (0.000-0.056) C-Reactive Protein, Quantitative 1.8 mg/dL (0.00-0.90) H Pro-B-Type Natriuretic Peptide 71 pg/mL (0-125) Total Protein 7.8 G/DL (6.4-8.2) Albumin 3.4 G/DL (3.4-5.0) Globulin 4.4 g/dL Albumin/Globulin Ratio 0.8 (1.0-2.7) L Vitamin B12 Level 258 PG/ML (193-986) Folate 46.0 NG/ML (8.6-58.9) Thyroid Stimulating Hormone (TSH) 1.837 uiU/mL (0.358-3.740) Urine Eosinophils None seen (NONE SEEN) Urine Random Sodium 145 mmol/L (20-110) H Intake and Output 05/07/19 05/08/19 18:59 06:59 Intake Total 950 ml Output Total 400 ml Balance 950 ml -400 ml Other 950 ml Output Urine Total 400 ml # Voids 2 # Bowel Movements 1 Objective PHYSICAL EXAMINATION: GENERAL: The patient is awake and responsive, in no acute distress. HEAD AND NECK: Pupils are reactive to light. Extraocular movements intact. NECK: Supple. No JVD. LUNGS: Good air entry. No wheezing or rales. Decreased air in bases. HEART: S1, S2. Distant heart sounds. No gallops. ABDOMEN: Soft and nondistended. Morbidly obese. EXTREMITIES: No cyanosis or clubbing. A +2 edema in bilateral lower extremities. NEUROLOGIC: Cranial nerves II through XII is grossly intact. Motor is 5/5 in all extremities except left upper extremity, which is 1/5. RECTAL/GENITOURINARY: Refused and deferred. PSYCHIATRIC: Mood and affect is intact. Assessment/Plan Assessment/Plan ASSESSMENT: 1. Pedal edema with fluid overload. 2. Urinary retention. 3. Diabetes type 2. 4. Diabetic nephropathy. 5. Diabetic neuropathy. 6. Chronic kidney disease as a result of the diabetes poorly controlled. 7. Hypertension. 8. Dyslipidemia. 9. Pedal edema. PLAN: 1. Admit the patient to monitored unit. 2. We will follow up laboratory. 3. Accu-Chek with sliding scale. 4. Code status is Full Code. 5. Lasix IV. 6. DVT prophylaxis with heparin subcutaneous. 7. Discussed the case with Dr. Winter, Pulmonary Critical Care 8. Dr. Dickerson from Cardiology. Adis Kenny MD May 08, 2019 15:34
[2019-05-08 16:00] VITALS: BP 135/70
--- NOTE | 2019-05-08 17:21 | Cardiology Progress Note ---
Assessment/Plan Assessment/Plan 1. Peripheral edema. 2. Diabetes with end-organ damage. 3. Chronic renal insufficiency secondary to diabetes. 4. Diabetic neuropathy. 5. History of acoustic neuroma. 6. History of CVA. echo report not availbe reviwed echo myself lv function normal rv is not enlarged edema improved home soon Subjective Cardiovascular: Denies: chest pain, irregular heart rate Respiratory: Denies: shortness of breath Gastrointestinal/Abdominal: Denies: abdominal pain Genitourinary: Denies: burning Objective Last 24 Hour Vital Signs Date Time Temp Pulse Resp B/P (MAP) Pulse Ox O2 Delivery O2 Flow Rate FiO2 05/08/19 16:00 97.8 89 17 135/70 (91) 96 05/08/19 12:00 98.4 84 16 139/71 (93) 96 05/08/19 09:00 Room Air 05/08/19 08:50 93 156/87 05/08/19 08:00 98.8 95 18 112/76 (88) 95 05/08/19 04:00 97.0 86 18 127/77 (94) 96 05/08/19 00:00 98.1 86 18 130/79 (96) 96 05/07/19 21:00 Room Air 05/07/19 20:50 98.1 85 17 161/79 (106) 98 General Appearance: no apparent distress Neck: supple Cardiovascular: normal rate Abdomen: normal bowel sounds, non tender, soft Extremities: no swelling Intake and Output 05/07/19 05/08/19 18:59 06:59 Intake Total 950 ml Output Total 400 ml Balance 950 ml -400 ml Other 950 ml Output Urine Total 400 ml # Voids 2 # Bowel Movements 1 Laboratory Tests Test 05/08/19 05:30 05/08/19 07:00 White Blood Count 6.2 K/UL (4.8-10.8) Red Blood Count 5.08 M/UL (4.70-6.10) Hemoglobin 13.9 G/DL (14.2-18.0) L Hematocrit 43.8 % (42.0-52.0) Mean Corpuscular Volume 86 FL (80-99) Mean Corpuscular Hemoglobin 27.4 PG (27.0-31.0) Mean Corpuscular Hemoglobin Concent 31.8 G/DL (32.0-36.0) L Red Cell Distribution Width 14.4 % (11.6-14.8) Platelet Count 194 K/UL (150-450) Mean Platelet Volume 6.3 FL (6.5-10.1) L Neutrophils (%) (Auto) 56.4 % (45.0-75.0) Lymphocytes (%) (Auto) 29.0 % (20.0-45.0) Monocytes (%) (Auto) 9.1 % (1.0-10.0) Eosinophils (%) (Auto) 4.3 % (0.0-3.0) H Basophils (%) (Auto) 1.2 % (0.0-2.0) Sodium Level 136 MMOL/L (136-145) Potassium Level 4.9 MMOL/L (3.5-5.1) Chloride Level 104 MMOL/L (98-107) Carbon Dioxide Level 26 MMOL/L (21-32) Anion Gap 6 mmol/L (5-15) Blood Urea Nitrogen 28 mg/dL (7-18) H Creatinine 2.2 MG/DL (0.55-1.30) H Estimat Glomerular Filtration Rate mL/min (>60) Glucose Level 178 MG/DL (74-106) H Hemoglobin A1c 9.4 % (4.3-6.0) H Uric Acid 8.7 MG/DL (2.6-7.2) H Calcium Level 9.9 MG/DL (8.5-10.1) Phosphorus Level 2.6 MG/DL (2.5-4.9) Magnesium Level 1.7 MG/DL (1.8-2.4) L Iron Level 67 ug/dL (50-175) Total Iron Binding Capacity 278 ug/dL (250-450) Percent Iron Saturation 24 % (15-50) Unsaturated Iron Binding 211 ug/dL (112-346) Ferritin 80 NG/ML (8-388) Total Bilirubin 0.6 MG/DL (0.2-1.0) Gamma Glutamyl Transpeptidase 12 U/L (5-85) Aspartate Amino Transf (AST/SGOT) 17 U/L (15-37) Alanine Aminotransferase (ALT/SGPT) 12 U/L (12-78) Alkaline Phosphatase 73 U/L (46-116) Total Creatine Kinase 221 U/L (26-308) Troponin I 0.000 ng/mL (0.000-0.056) C-Reactive Protein, Quantitative 1.8 mg/dL (0.00-0.90) H Pro-B-Type Natriuretic Peptide 71 pg/mL (0-125) Total Protein 7.8 G/DL (6.4-8.2) Albumin 3.4 G/DL (3.4-5.0) Globulin 4.4 g/dL Albumin/Globulin Ratio 0.8 (1.0-2.7) L Vitamin B12 Level 258 PG/ML (193-986) Folate 46.0 NG/ML (8.6-58.9) Thyroid Stimulating Hormone (TSH) 1.837 uiU/mL (0.358-3.740) Urine Eosinophils None seen (NONE SEEN) Urine Random Sodium 145 mmol/L (20-110) H Rasheed Dickerson MD May 08, 2019 17:21
--- NOTE | 2019-05-08 19:20 | NUR ---
HAND-OFF: Report given to CHASE Sorenson. Plan of care endorsed.
--- NOTE | 2019-05-08 19:33 | NUR ---
NURSE NOTES: pt resting in bed. a/o x 4, calm, cooperative. Denies pain, no SOB noted. bed in low position, bed alarm on . call light within reach. fall precaution maintained. will continue to monitor.
--- NOTE | 2019-05-08 19:39 | Pulmonology Progress Note ---
Assessment/Plan Problems: (1) Edema (2) Anemia (3) CKD (chronic kidney disease) (4) Diabetes mellitus out of control (5) Frequent falls Assessment/Plan doing better wants to go home echo reviewed renal US was negative pt c an go home with outpatient f/u Subjective ROS Limited/Unobtainable: No HEENT: Repors: no symptoms Allergies: Coded Allergies: No Known Allergies (Unverified , 01/04/13) Objective Last 24 Hour Vital Signs Date Time Temp Pulse Resp B/P (MAP) Pulse Ox O2 Delivery O2 Flow Rate FiO2 05/08/19 16:00 97.8 89 17 135/70 (91) 96 05/08/19 12:00 98.4 84 16 139/71 (93) 96 05/08/19 09:00 Room Air 05/08/19 08:50 93 156/87 05/08/19 08:00 98.8 95 18 112/76 (88) 95 05/08/19 04:00 97.0 86 18 127/77 (94) 96 05/08/19 00:00 98.1 86 18 130/79 (96) 96 05/07/19 21:00 Room Air 05/07/19 20:50 98.1 85 17 161/79 (106) 98 Intake and Output 05/07/19 05/08/19 18:59 06:59 Intake Total 950 ml Output Total 400 ml Balance 950 ml -400 ml Other 950 ml Output Urine Total 400 ml # Voids 2 # Bowel Movements 1 General Appearance: WD/WN HEENT: normocephalic, anicteric Respiratory/Chest: chest wall non-tender, normal breath sounds, chest wall tender Cardiovascular: normal rate, no JVD Abdomen: normal bowel sounds Genitourinary: normal external genitalia Extremities: no clubbing Skin: no rash Laboratory Tests 05/08/19 05:30: White Blood Count 6.2, Red Blood Count 5.08, Hemoglobin 13.9L, Hematocrit 43.8, Mean Corpuscular Volume 86, Mean Corpuscular Hemoglobin 27.4, Mean Corpuscular Hemoglobin Concent 31.8L, Red Cell Distribution Width 14.4, Platelet Count 194, Mean Platelet Volume 6.3L, Neutrophils (%) (Auto) 56.4, Lymphocytes (%) (Auto) 29.0, Monocytes (%) (Auto) 9.1, Eosinophils (%) (Auto) 4.3H, Basophils (%) (Auto ) 1.2, Sodium Level 136, Potassium Level 4.9, Chloride Level 104, Carbon Dioxide Level 26, Anion Gap 6, Blood Urea Nitrogen 28H, Creatinine 2.2H, Estimat Glomerular Filtration Rate , Glucose Level 178H, Hemoglobin A1c 9.4H, Uric Acid 8.7H, Calcium Level 9.9, Phosphorus Level 2.6, Magnesium Level 1.7L, Iron Level 67, Total Iron Binding Capacity 278, Percent Iron Saturation 24, Unsaturated Iron Binding 211, Ferritin 80, Total Bilirubin 0.6, Gamma Glutamyl Transpeptidase 12, Aspartate Amino Transf (AST/SGOT) 17, Alanine Aminotransferase (ALT/SGPT) 12, Alkaline Phosphatase 73, Total Creatine Kinase 221, Troponin I 0.000, C-Reactive Protein, Quantitative 1.8H, Pro-B-Type Natriuretic Peptide 71, Total Protein 7.8, Albumin 3.4, Globulin 4.4, Albumin/ Globulin Ratio 0.8L, Vitamin B12 Level 258, Folate 46.0, Thyroid Stimulating Hormone (TSH) 1.837 05/08/19 07:00: Urine Eosinophils None seen, Urine Random Sodium 145H Current Medications Medications (Trade) Dose Ordered Sig/Susie Route PRN Reason Start Time Stop Time Status Last Admin Dose Admin Acetaminophen (Tylenol) 650 mg Q4H PRN ORAL fever (temp>100.5F) 05/07/19 01:36 06/04/19 01:35 Amlodipine Besylate (Norvasc) 5 mg DAILY ORAL 05/07/19 09:00 06/05/19 08:59 05/08/19 08:50 Dextrose (Dextrose 50%) 25 ml Q30M PRN IV Hypoglycemia 05/07/19 01:45 06/04/19 19:44 Dextrose (Dextrose 50%) 50 ml Q30M PRN IV Hypoglycemia 05/07/19 01:45 06/04/19 19:44 Docusate Sodium (Colace) 100 mg THREE TIMES A DAY ORAL 05/07/19 18:00 06/06/19 17:59 05/08/19 18:25 Gabapentin (Neurontin) 300 mg QID ORAL 05/07/19 09:00 06/04/19 20:59 05/08/19 18:25 Heparin Sodium (Porcine) (Heparin 5000 units/ml) 5,000 units EVERY 12 HOURS SUBQ 05/07/19 09:00 06/04/19 20:59 05/08/19 08:53 Insulin Aspart (NovoLOG) BEFORE MEALS AND HS SUBQ 05/07/19 06:30 06/04/19 20:59 05/08/19 17:18 Lorazepam (Ativan 2mg/ml 1ml) 0.5 mg Q4H PRN IV For Anxiety 05/07/19 01:40 05/12/19 01:39 Morphine Sulfate (Morphine Sulfate) 1 mg Q4H PRN IVP For Pain 05/07/19 01:40 05/12/19 01:39 Ondansetron HCl (Zofran) 4 mg Q6H PRN IVP Nausea & Vomiting 05/07/19 01:45 06/04/19 19:44 Pantoprazole (Protonix) 40 mg EVERY 12 HOURS ORAL 05/07/19 21:00 06/06/19 20:59 05/08/19 08:49 Polyethylene Glycol (Miralax) 17 gm HSPRN PRN ORAL Constipation 05/07/19 01:41 06/04/19 01:40 Tamsulosin HCl (Flomax) 0.4 mg BID ORAL 05/07/19 18:00 06/04/19 20:59 05/08/19 18:25 Zolpidem Tartrate (Ambien) 5 mg HSPRN PRN ORAL Insomnia 05/07/19 01:36 05/12/19 01:35 Gaby Winter MD May 08, 2019 19:39
[2019-05-08 20:00] VITALS: BP 109/64
[2019-05-09] VITALS: BP 126/65
[2019-05-09 04:00] VITALS: BP 119/81
[2019-05-09] MEDS: NovoLOG Insulin Flexpen SUBQ SCH ×2 (06:38→11:37)
--- NOTE | 2019-05-09 07:20 | NUR ---
nurse notes received patient in bed, patient awake, alert oriented x4, no sign of distress denies pain or discomfort, HL patent, on fall precaution. Bed at lowest position, break engaged, call light within reach. warren santos
--- NOTE | 2019-05-09 07:29 | NUR ---
HAND-OFF: Report given to CHASE Rocha
[2019-05-09 07:48] LABS: BASOPHILS % (AUTO) 0.8 % (0.0-2.0); EOSINOPHILS % (AUTO) 4.3 % (0.0-3.0); HEMATOCRIT 42.8 % (42.0-52.0); HEMOGLOBIN 13.6 G/DL (14.2-18.0); MEAN CORPUSCULAR VOLUME 86 FL (80-99); MONOCYTES % (AUTO) 9.3 % (1.0-10.0); NEUTROPHILS % (AUTO) 56.6 % (45.0-75.0); PLATELET COUNT 250 K/UL (150-450); RED CELL DISTRIBUTION WIDTH 14.2 % (11.6-14.8); WHITE BLOOD COUNT 6.1 K/UL (4.8-10.8)
[2019-05-09 07:55] LABS: ANION GAP 10 mmol/L (5-15); BLOOD UREA NITROGEN 29 mg/dL (7-18); CALCIUM 9.8 MG/DL (8.5-10.1); CARBON DIOXIDE 24 MMOL/L (21-32); CHLORIDE 103 MMOL/L (98-107); CREATININE 2.2 MG/DL (0.55-1.30); POTASSIUM 4.7 MMOL/L (3.5-5.1); SODIUM 137 MMOL/L (136-145)
[2019-05-09 08:00] VITALS: BP 128/68
--- NOTE | 2019-05-09 08:12 | NUR ---
ENGRAVER JEWELRY Co-Signature Notes: Reviewed patient's chart. Reviewed and approved ENGRAVER [employer]EL[employer] notes Addendum: 05/09/19 at 0812 by SCOUT DISLA PT,MG Amended: Links added.
[2019-05-09] MEDS: Docusate 100mg cap ORAL SCH ×2 (08:14→12:16)
[2019-05-09] MEDS: Tamsulosin 0.4mg cap ORAL SCH (08:15)
[2019-05-09] MEDS: Heparin 5000 units/ml inj SUBQ SCH (08:17)
[2019-05-09 10:17] LABS: ALANINE AMINOTRANSFERASE 17 U/L (12-78); ALBUMIN 3.6 G/DL (3.4-5.0); ALKALINE PHOSPHATASE 74 U/L (46-116); ASPARTATE AMINO TRANSFERASE 26 U/L (15-37); BILIRUBIN,DIRECT < 0.1 MG/DL (0.0-0.3); BILIRUBIN,TOTAL 0.6 MG/DL (0.2-1.0); PHOSPHORUS 2.6 MG/DL (2.5-4.9)
--- NOTE | 2019-05-09 11:59 | Nephrology Progress Note ---
Assessment/Plan Problem List: (1) Renal failure (ARF), acute on chronic (2) CKD (chronic kidney disease) (3) Urinary retention (4) Hypertensive nephropathy Assessment CKD- likely diabetic Nephropathy h/o Urinary retention Hypertensive Nephrosclerosis High Lipids BPH h/o CVA h/o Acoustic Neurinoma 55 to 60 % Ej Fx Plan Kidney QUINTIN noted- Retention of urine urine studies BS and BP check avoid Nephrotoxics Up dose flomax monitor renal parameters Subjective ROS Limited/Unobtainable: No Constitutional: Reports: malaise Objective Objective Last 24 Hour Vital Signs Date Time Temp Pulse Resp B/P (MAP) Pulse Ox O2 Delivery O2 Flow Rate FiO2 05/09/19 08:14 77 119/81 05/09/19 08:10 Room Air 05/09/19 08:00 97.8 76 18 128/68 (88) 95 05/09/19 04:00 97.5 77 18 119/81 (94) 96 05/09/19 00:00 97.5 81 18 126/65 (85) 93 05/08/19 21:00 Room Air 05/08/19 20:00 97.9 80 18 109/64 (79) 96 05/08/19 16:00 97.8 89 17 135/70 (91) 96 05/08/19 12:00 98.4 84 16 139/71 (93) 96 Intake and Output 05/08/19 05/09/19 19:00 07:00 Intake Total 1400 ml Output Total 600 ml 400 ml Balance 800 ml -400 ml Intake Oral 600 ml Other 800 ml Output Urine Total 600 ml 400 ml # Voids 2 Current Medications Medications (Trade) Dose Ordered Sig/Susie Route PRN Reason Start Time Stop Time Status Last Admin Dose Admin Acetaminophen (Tylenol) 650 mg Q4H PRN ORAL fever (temp>100.5F) 05/07/19 01:36 06/04/19 01:35 05/08/19 20:37 Amlodipine Besylate (Norvasc) 5 mg DAILY ORAL 05/07/19 09:00 06/05/19 08:59 05/09/19 08:14 Dextrose (Dextrose 50%) 25 ml Q30M PRN IV Hypoglycemia 05/07/19 01:45 06/04/19 19:44 Dextrose (Dextrose 50%) 50 ml Q30M PRN IV Hypoglycemia 05/07/19 01:45 06/04/19 19:44 Docusate Sodium (Colace) 100 mg THREE TIMES A DAY ORAL 05/07/19 18:00 06/06/19 17:59 05/09/19 08:14 Gabapentin (Neurontin) 300 mg QID ORAL 05/07/19 09:00 06/04/19 20:59 05/09/19 08:15 Heparin Sodium (Porcine) (Heparin 5000 units/ml) 5,000 units EVERY 12 HOURS SUBQ 05/07/19 09:00 06/04/19 20:59 05/09/19 08:17 Insulin Aspart (NovoLOG) BEFORE MEALS AND HS SUBQ 05/07/19 06:30 06/04/19 20:59 05/09/19 11:37 Lorazepam (Ativan 2mg/ml 1ml) 0.5 mg Q4H PRN IV For Anxiety 05/07/19 01:40 05/12/19 01:39 Morphine Sulfate (Morphine Sulfate) 1 mg Q4H PRN IVP For Pain 05/07/19 01:40 05/12/19 01:39 Ondansetron HCl (Zofran) 4 mg Q6H PRN IVP Nausea & Vomiting 05/07/19 01:45 06/04/19 19:44 Pantoprazole (Protonix) 40 mg EVERY 12 HOURS ORAL 05/07/19 21:00 06/06/19 20:59 05/09/19 08:14 Polyethylene Glycol (Miralax) 17 gm HSPRN PRN ORAL Constipation 05/07/19 01:41 06/04/19 01:40 Tamsulosin HCl (Flomax) 0.4 mg BID ORAL 05/07/19 18:00 06/04/19 20:59 05/09/19 08:15 Zolpidem Tartrate (Ambien) 5 mg HSPRN PRN ORAL Insomnia 05/07/19 01:36 05/12/19 01:35 Laboratory Tests 05/09/19 04:25: Urine Eosinophils Occasional 05/09/19 06:30: White Blood Count 6.1, Red Blood Count 5.00, Hemoglobin 13.6L, Hematocrit 42.8, Mean Corpuscular Volume 86, Mean Corpuscular Hemoglobin 27.3, Mean Corpuscular Hemoglobin Concent 31.8L, Red Cell Distribution Width 14.2, Platelet Count 250, Mean Platelet Volume 7.9, Neutrophils (%) (Auto) 56.6, Lymphocytes (%) (Auto) 29.0, Monocytes (%) (Auto) 9.3, Eosinophils (%) (Auto) 4.3H, Basophils (%) (Auto ) 0.8, Sodium Level 137, Potassium Level 4.7, Chloride Level 103, Carbon Dioxide Level 24, Anion Gap 10, Blood Urea Nitrogen 29H, Creatinine 2.2H, Estimat Glomerular Filtration Rate , Glucose Level 220H, Calcium Level 9.8, Phosphorus Level 2.6, Magnesium Level 1.6L, Total Bilirubin 0.6, Direct Bilirubin < 0.1, Aspartate Amino Transf (AST/SGOT) 26, Alanine Aminotransferase (ALT/SGPT) 17, Alkaline Phosphatase 74, Total Protein 8.1, Albumin 3.6 Height (Feet): 5 Height (Inches): 11.00 Weight (Pounds): 260 General Appearance: no apparent distress Respiratory/Chest: decreased breath sounds Abdomen: distended Objective no change Minor Alford MD May 09, 2019 11:59
[2019-05-09 12:20] VITALS: BP 121/70
--- NOTE | 2019-05-09 13:30 | Cardiology Report ---
APPROVED REPORT EXAM: Two-dimensional and M-mode echocardiogram with Doppler and color Doppler. INDICATION Left ventricular function M-Mode DIMENSIONS IVSd1.3 (0.7-1.1cm)Left Atrium (MM)4.7 (1.6-4.0cm) LVDd6.2 (3.5-5.6cm)Aortic Root3.2 (2.0-3.7cm) PWd0.9 (0.7-1.1cm)Aortic Cusp Exc.1.7 (1.5-2.0cm) LVDs4.8 (2.5-4.0cm) PWs1.2 cm Normal left ventricular chamber size, systolic function and wall motion. Left ventricular ejection fraction estimated to be 55-60 %. Mild left ventricular hypertrophy. No evidence of pericardial effusion. Right atrial size at upper limits of normal. Left atrial chamber sizes are within normal limits. Right ventricular chamber sizes are within normal limits. Focal aortic valve sclerosis with adequate cusp excursion. Thickened mitral valve leaflets with normal excursion. Mitral annulus and aortic root calcification. Pulmonic valve not well visualized. Normal tricuspid valve structure. IVC dilated at 2.2 cm with slight physiologic collapse. A color flow and spectral Doppler study was performed and revealed: No aortic regurgitation. Mitral diastolic velocities suggest mild left ventricular diastolic dysfunction (Grade I). Trace mitral regurgitation. Trace tricuspid regurgitation. Tricuspid systolic velocities suggests peak right ventricular systolic pressure of 13 mmHg. No pulmonic regurgitation present.
--- NOTE | 2019-05-09 13:32 | Pulmonology Progress Note ---
Assessment/Plan Problems: (1) Edema (2) Anemia (3) CKD (chronic kidney disease) (4) Diabetes mellitus out of control (5) Frequent falls Assessment/Plan all noted dc home doing better wants to go home echo reviewed renal US was negative pt c an go home with outpatient f/u Subjective ROS Limited/Unobtainable: No Constitutional: Reports: no symptoms HEENT: Repors: no symptoms Respiratory: Reports: no symptoms Allergies: Coded Allergies: No Known Allergies (Unverified , 01/04/13) Objective Last 24 Hour Vital Signs Date Time Temp Pulse Resp B/P (MAP) Pulse Ox O2 Delivery O2 Flow Rate FiO2 05/09/19 12:20 98.6 79 19 121/70 (87) 96 05/09/19 08:14 77 119/81 05/09/19 08:10 Room Air 05/09/19 08:00 97.8 76 18 128/68 (88) 95 05/09/19 04:00 97.5 77 18 119/81 (94) 96 05/09/19 00:00 97.5 81 18 126/65 (85) 93 05/08/19 21:00 Room Air 05/08/19 20:00 97.9 80 18 109/64 (79) 96 05/08/19 16:00 97.8 89 17 135/70 (91) 96 Intake and Output 05/08/19 05/09/19 19:00 07:00 Intake Total 1400 ml Output Total 600 ml 400 ml Balance 800 ml -400 ml Intake Oral 600 ml Other 800 ml Output Urine Total 600 ml 400 ml # Voids 2 General Appearance: WD/WN HEENT: normocephalic Respiratory/Chest: chest wall non-tender, lungs clear, chest wall tender Cardiovascular: normal peripheral pulses, normal rate Abdomen: normal bowel sounds, non distended Genitourinary: normal external genitalia Extremities: no clubbing Skin: no lesions Neurologic/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: 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 Laboratory Tests 05/09/19 04:25: Urine Eosinophils Occasional 05/09/19 06:30: White Blood Count 6.1, Red Blood Count 5.00, Hemoglobin 13.6L, Hematocrit 42.8, Mean Corpuscular Volume 86, Mean Corpuscular Hemoglobin 27.3, Mean Corpuscular Hemoglobin Concent 31.8L, Red Cell Distribution Width 14.2, Platelet Count 250, Mean Platelet Volume 7.9, Neutrophils (%) (Auto) 56.6, Lymphocytes (%) (Auto) 29.0, Monocytes (%) (Auto) 9.3, Eosinophils (%) (Auto) 4.3H, Basophils (%) (Auto ) 0.8, Sodium Level 137, Potassium Level 4.7, Chloride Level 103, Carbon Dioxide Level 24, Anion Gap 10, Blood Urea Nitrogen 29H, Creatinine 2.2H, Estimat Glomerular Filtration Rate , Glucose Level 220H, Calcium Level 9.8, Phosphorus Level 2.6, Magnesium Level 1.6L, Total Bilirubin 0.6, Direct Bilirubin < 0.1, Aspartate Amino Transf (AST/SGOT) 26, Alanine Aminotransferase (ALT/SGPT) 17, Alkaline Phosphatase 74, Total Protein 8.1, Albumin 3.6 Current Medications Medications (Trade) Dose Ordered Sig/Susie Route PRN Reason Start Time Stop Time Status Last Admin Dose Admin Acetaminophen (Tylenol) 650 mg Q4H PRN ORAL fever (temp>100.5F) 05/07/19 01:36 06/04/19 01:35 05/08/19 20:37 Amlodipine Besylate (Norvasc) 5 mg DAILY ORAL 05/07/19 09:00 06/05/19 08:59 05/09/19 08:14 Dextrose (Dextrose 50%) 25 ml Q30M PRN IV Hypoglycemia 05/07/19 01:45 06/04/19 19:44 Dextrose (Dextrose 50%) 50 ml Q30M PRN IV Hypoglycemia 05/07/19 01:45 06/04/19 19:44 Docusate Sodium (Colace) 100 mg THREE TIMES A DAY ORAL 05/07/19 18:00 06/06/19 17:59 05/09/19 12:16 Gabapentin (Neurontin) 300 mg QID ORAL 05/07/19 09:00 06/04/19 20:59 05/09/19 12:16 Heparin Sodium (Porcine) (Heparin 5000 units/ml) 5,000 units EVERY 12 HOURS SUBQ 05/07/19 09:00 06/04/19 20:59 05/09/19 08:17 Insulin Aspart (NovoLOG) BEFORE MEALS AND HS SUBQ 05/07/19 06:30 06/04/19 20:59 05/09/19 11:37 Lorazepam (Ativan 2mg/ml 1ml) 0.5 mg Q4H PRN IV For Anxiety 05/07/19 01:40 05/12/19 01:39 Magnesium Sulfate 100 ml @ 100 mls/hr Q1H IVPB 05/09/19 12:00 05/09/19 13:59 05/09/19 12:15 Morphine Sulfate (Morphine Sulfate) 1 mg Q4H PRN IVP For Pain 05/07/19 01:40 05/12/19 01:39 Ondansetron HCl (Zofran) 4 mg Q6H PRN IVP Nausea & Vomiting 05/07/19 01:45 06/04/19 19:44 Pantoprazole (Protonix) 40 mg EVERY 12 HOURS ORAL 05/07/19 21:00 06/06/19 20:59 05/09/19 08:14 Polyethylene Glycol (Miralax) 17 gm HSPRN PRN ORAL Constipation 05/07/19 01:41 06/04/19 01:40 Tamsulosin HCl (Flomax) 0.4 mg BID ORAL 05/07/19 18:00 06/04/19 20:59 05/09/19 08:15 Zolpidem Tartrate (Ambien) 5 mg HSPRN PRN ORAL Insomnia 05/07/19 01:36 05/12/19 01:35 Gaby Winter MD May 09, 2019 13:32
--- NOTE | 2019-05-09 13:40 | Internal Med Progress Note ---
Subjective Date of Service: May 09, 2019 Physician Name Adis Kenny Attending Physician Adithya Verduzco MD Current Medications Medications (Trade) Dose Ordered Sig/Susie Route PRN Reason Start Time Stop Time Status Last Admin Dose Admin Acetaminophen (Tylenol) 650 mg Q4H PRN ORAL fever (temp>100.5F) 05/07/19 01:36 06/04/19 01:35 05/08/19 20:37 Amlodipine Besylate (Norvasc) 5 mg DAILY ORAL 05/07/19 09:00 06/05/19 08:59 05/09/19 08:14 Dextrose (Dextrose 50%) 25 ml Q30M PRN IV Hypoglycemia 05/07/19 01:45 06/04/19 19:44 Dextrose (Dextrose 50%) 50 ml Q30M PRN IV Hypoglycemia 05/07/19 01:45 06/04/19 19:44 Docusate Sodium (Colace) 100 mg THREE TIMES A DAY ORAL 05/07/19 18:00 06/06/19 17:59 05/09/19 12:16 Gabapentin (Neurontin) 300 mg QID ORAL 05/07/19 09:00 06/04/19 20:59 05/09/19 12:16 Heparin Sodium (Porcine) (Heparin 5000 units/ml) 5,000 units EVERY 12 HOURS SUBQ 05/07/19 09:00 06/04/19 20:59 05/09/19 08:17 Insulin Aspart (NovoLOG) BEFORE MEALS AND HS SUBQ 05/07/19 06:30 06/04/19 20:59 05/09/19 11:37 Lorazepam (Ativan 2mg/ml 1ml) 0.5 mg Q4H PRN IV For Anxiety 05/07/19 01:40 05/12/19 01:39 Magnesium Sulfate 100 ml @ 100 mls/hr Q1H IVPB 05/09/19 12:00 05/09/19 13:59 05/09/19 12:15 Morphine Sulfate (Morphine Sulfate) 1 mg Q4H PRN IVP For Pain 05/07/19 01:40 05/12/19 01:39 Ondansetron HCl (Zofran) 4 mg Q6H PRN IVP Nausea & Vomiting 05/07/19 01:45 06/04/19 19:44 Pantoprazole (Protonix) 40 mg EVERY 12 HOURS ORAL 05/07/19 21:00 06/06/19 20:59 05/09/19 08:14 Polyethylene Glycol (Miralax) 17 gm HSPRN PRN ORAL Constipation 05/07/19 01:41 06/04/19 01:40 Tamsulosin HCl (Flomax) 0.4 mg BID ORAL 05/07/19 18:00 06/04/19 20:59 05/09/19 08:15 Zolpidem Tartrate (Ambien) 5 mg HSPRN PRN ORAL Insomnia 05/07/19 01:36 05/12/19 01:35 Allergies: Coded Allergies: No Known Allergies (Unverified , 01/04/13) ROS Limited/Unobtainable: No Constitutional: Reports: no symptoms HEENT: Reports: no symptoms Cardiovascular: Reports: no symptoms Respiratory: Reports: no symptoms Gastrointestinal/Abdominal: Reports: no symptoms Genitourinary: Reports: no symptoms Neurologic/Psychiatric: Reports: no symptoms Subjective 83 YO M admitted with edema. Now Cover for Int Med-Dr Verduzco Objective Last Vital Signs Date Time Temp Pulse Resp B/P (MAP) Pulse Ox O2 Delivery O2 Flow Rate FiO2 05/09/19 12:20 98.6 79 19 121/70 (87) 96 05/09/19 08:10 Room Air Laboratory Tests Test 05/09/19 04:25 05/09/19 06:30 Urine Eosinophils Occasional (NONE SEEN) White Blood Count 6.1 K/UL (4.8-10.8) Red Blood Count 5.00 M/UL (4.70-6.10) Hemoglobin 13.6 G/DL (14.2-18.0) L Hematocrit 42.8 % (42.0-52.0) Mean Corpuscular Volume 86 FL (80-99) Mean Corpuscular Hemoglobin 27.3 PG (27.0-31.0) Mean Corpuscular Hemoglobin Concent 31.8 G/DL (32.0-36.0) L Red Cell Distribution Width 14.2 % (11.6-14.8) Platelet Count 250 K/UL (150-450) Mean Platelet Volume 7.9 FL (6.5-10.1) Neutrophils (%) (Auto) 56.6 % (45.0-75.0) Lymphocytes (%) (Auto) 29.0 % (20.0-45.0) Monocytes (%) (Auto) 9.3 % (1.0-10.0) Eosinophils (%) (Auto) 4.3 % (0.0-3.0) H Basophils (%) (Auto) 0.8 % (0.0-2.0) Sodium Level 137 MMOL/L (136-145) Potassium Level 4.7 MMOL/L (3.5-5.1) Chloride Level 103 MMOL/L (98-107) Carbon Dioxide Level 24 MMOL/L (21-32) Anion Gap 10 mmol/L (5-15) Blood Urea Nitrogen 29 mg/dL (7-18) H Creatinine 2.2 MG/DL (0.55-1.30) H Estimat Glomerular Filtration Rate mL/min (>60) Glucose Level 220 MG/DL (74-106) H Calcium Level 9.8 MG/DL (8.5-10.1) Phosphorus Level 2.6 MG/DL (2.5-4.9) Magnesium Level 1.6 MG/DL (1.8-2.4) L Total Bilirubin 0.6 MG/DL (0.2-1.0) Direct Bilirubin < 0.1 MG/DL (0.0-0.3) Aspartate Amino Transf (AST/SGOT) 26 U/L (15-37) Alanine Aminotransferase (ALT/SGPT) 17 U/L (12-78) Alkaline Phosphatase 74 U/L (46-116) Total Protein 8.1 G/DL (6.4-8.2) Albumin 3.6 G/DL (3.4-5.0) Intake and Output 05/08/19 05/09/19 19:00 07:00 Intake Total 1400 ml Output Total 600 ml 400 ml Balance 800 ml -400 ml Intake Oral 600 ml Other 800 ml Output Urine Total 600 ml 400 ml # Voids 2 Objective PHYSICAL EXAMINATION: GENERAL: The patient is awake and responsive, in no acute distress. HEAD AND NECK: Pupils are reactive to light. Extraocular movements intact. NECK: Supple. No JVD. LUNGS: Good air entry. No wheezing or rales. Decreased air in bases. HEART: S1, S2. Distant heart sounds. No gallops. ABDOMEN: Soft and nondistended. Morbidly obese. EXTREMITIES: No cyanosis or clubbing. A +2 edema in bilateral lower extremities. NEUROLOGIC: Cranial nerves II through XII is grossly intact. Motor is 5/5 in all extremities except left upper extremity, which is 1/5. RECTAL/GENITOURINARY: Refused and deferred. PSYCHIATRIC: Mood and affect is intact. Assessment/Plan Assessment/Plan ASSESSMENT: 1. Pedal edema with fluid overload. 2. Urinary retention. 3. Diabetes type 2. 4. Diabetic nephropathy. 5. Diabetic neuropathy. 6. Chronic kidney disease as a result of the diabetes poorly controlled. 7. Hypertension. 8. Dyslipidemia. 9. Pedal edema. PLAN: 1. Admit the patient to monitored unit. 2. We will follow up laboratory. 3. Accu-Chek with sliding scale. 4. Code status is Full Code. 5. Lasix IV. 6. DVT prophylaxis with heparin subcutaneous. 7. Discussed the case with Dr. Winter, Pulmonary Critical Care 8. Dr. Dickerson from Cardiology. Adis Kenny MD May 09, 2019 13:40
--- NOTE | 2019-05-09 15:39 | NUR ---
NURSE NOTES Patient made aware regarding plan of care, discharge instruction packet handed to patient , called Patient regarding discharged and both agreed with the plan of care, all questions answered verbalized understanding, 4 P's in progress call light w/n reach warren santos
[2019-05-09 16:00] VITALS: BP 125/68
--- NOTE | 2019-05-09 16:42 | NUR ---
NURSE NOTES Discharged in stable condition accompanied by ambulance personnel with all belongings taken , discharged via ambulance, patient discharged to home warren santos
--- NOTE | 2019-05-10 08:26 | Discharge Summary ---
Discharge Summary Discharge Summary _ DATE OF ADMISSION: 05/05/2019 DATE OF DISCHARGE: 05/09/2019 DISCHARGED BY: Dr. Verduzco REASON FOR ADMISSION: 83 years old male with past medical history of diabetes mellitus type 2, hypertension, morbid obesity, congestive heart failure, history of acoustic neuroma , status post resection, was seen in the office and found to have leg edema associated with shortness of breath and decreased mobility. Shortly after initial evaluation in the office, patient was advised to come to the emergency room for further evaluation , including venous duplex of lower extremity and possible admission. Upon evaluation in the emergency room chest x-ray revealed mild pulmonary congestion. Laboratory work-up revealed BUN 26, creatinine 2.5. Glucose 245. Troponin negative. EKG revealed sinus rhythm no acute ischemic changes. The patient received 1 dose of Lasix and subsequently was admitted to telemetry floor for further management. CONSULTANTS: hearing aid assistant Dr. Dickerson pulmonary/critical care Dr. Winter tour leader Dr. Alford [facility] COURSE: Patient admitted to telemetry floor. Venous duplex bilateral lower extremity revealed no evidence of acute DVT. DVT prophylaxis provided. Coal Pulverizing Operator, tour leader and lumber inspector closely followed. Echocardiogram demonstrated preserved ejection fraction 55 to 60% with mild left ventricular hypertrophy. No evidence of wall motion abnormality. Right ventricular systolic pressure of 13. Blood pressure was managed with calcium channel rona. Lipid panel was stable. Supplemental oxygen titrated as needed to keep pulse oximetry above 92%. Pulse oximetry was stable on room air. Renal ultrasound revealed no hydronephrosis. Renal echogenicity appeared to be within normal limits. Bladder noted to be distended with volume of 597 mL. Possibly urinary retention. Per tour leader , patient had cute on chronic renal failure. Chronic kidney disease was likely due to diabetic nephropathy and hypertensive nephrosclerosis. Nephrotoxins were avoided. Flomax dose was increased. Patient was able to void freely. Intake and output were closely monitored. Renal parameters and electrolytes were closely monitored. Magnesium was replaced. Prior to discharge creatinine from 2.5 down to 2.2. Blood sugar was managed with sliding scale of insulin. Hemoglobin A1c 9.4 , clearly not at goal. Patient will need further optimization of anti-glycemic regimen as outpatient. GI prophylaxis provided. Supportive care provided. Bowel regimen instituted. Fall precaution maintained. Patient was working with physical therapist. Pedal edema improved. Creatinine trended down to baseline. Patient was able to void without difficulties. Patient clinically stabilized and was ready for discharge home with outpatient follow-up with primary care provider in 1 week. FINAL DIAGNOSES: Pedal edema with fluid overload-improved Urinary retention-resolved Acute on chronic renal failure Chronic kidney disease secondary to diabetic nephropathy Hypertensive nephrosclerosis Diabetes mellitus type 2 with end organ damage Dyslipidemia History of acoustic neuroma History of CVA Frequent falls DISCHARGE MEDICATIONS: See Medication Reconciliation list. DISCHARGE INSTRUCTIONS: Patient was discharged home . Follow up with primary care provider in one week. I have been assigned to dictate discharge summary for this account. I was not involved in the patient's management. Thuy Santos NP May 10, 2019 08:26
== END 2019-05-09 13:00 | disposition home or self-care (01) | DRG 641 ==
LOC: EMR 17:15 → EDBEDREQ 17:47 → 2E 17:51 → EDBEDREQ 18:10 → 4E 05-07 01:25
DX: E87.70 Fluid overload, unspecified (principal); N17.9 Acute kidney failure, unspecified; I13.0 Hypertensive heart and chronic kidney disease with heart failure and stage 1 through stage 4 chronic kidney disease, or unspecified chronic kidney disease; I69.354 Hemiplegia and hemiparesis following cerebral infarction affecting left non-dominant side; R60.9 Edema, unspecified; E11.21 Type 2 diabetes mellitus with diabetic nephropathy; E11.22 Type 2 diabetes mellitus with diabetic chronic kidney disease; N18.9 Chronic kidney disease, unspecified; E78.5 Hyperlipidemia, unspecified; R33.9 Retention of urine, unspecified; Z86.73 Personal history of transient ischemic attack (TIA), and cerebral infarction without residual deficits; E11.40 Type 2 diabetes mellitus with diabetic neuropathy, unspecified; D64.9 Anemia, unspecified; R29.6 Repeated falls; I50.9 Heart failure, unspecified; I25.10 Atherosclerotic heart disease of native coronary artery without angina pectoris; N40.0 Benign prostatic hyperplasia without lower urinary tract symptoms; E11.65 Type 2 diabetes mellitus with hyperglycemia
CPT/HCPCS: 36415; 71045; 76770; 80048; 80053; 80061; 80076; 81001; 82043; 82550; 82553; 82607; 82728; 82746; 82962; 82977; 83036; 83540; 83550; 83690; 83735; 83880; 83935; 84100; 84300; 84443; 84484; 84550; 85025; 86140; 89050; 93005; 93306; 93970; 96374; 99285; J1815